=== PATIENT | male | born 1985 | race African-American/Black ===

== ENCOUNTER 2016-10-04 12:42 | Emergency (ER) | payer SELFPAY ==
--- NOTE | 2016-10-04 14:02 | ER Document Report ---
HPI - HPI Patient complains to provider of: left pink eye Onset: Other - 4-5 days Pain Level: 1 Context: 31-year-old noncontact lens wear male with red left eye for several days and now has drainage that is crusting especially in the morning. He has not worn his glasses since fifth grade. No fever or chills. No facial swelling. Associated Symptoms: None Exacerbated by: Denies Relieved by: Denies Similar symptoms previously: No Recently seen / treated by doctor: No - ROS ROS below otherwise negative: Yes Systems Reviewed and Negative: Yes All other systems reviewed and negative - DERM Skin Color: Normal Past Medical History - General Information source: Patient - Social History Smoking Status: Current Every Day Smoker Frequency of alcohol use: Occasional Drug Abuse: Marijuana Lives with: Family Family History: Reviewed & Not Pertinent - Medical History Medical History: Negative Renal/ Medical History: Denies: Hx Peritoneal Dialysis Past Surgical History: Reports: Hx Appendectomy Vertical Provider Document - CONSTITUTIONAL Agree With Documented VS: Yes Exam Limitations: No Limitations - INFECTION CONTROL TRAVEL OUTSIDE OF THE [place] IN LAST 30 DAYS: No - HEENT HEENT: Conjuctival Injection - Left, Normocephalic, PERRLA Notes: Left preauricular lymph node. No for seen uptake, no foreign body - NECK Neck: Supple. negative: Lymphadenopathy-Left, Lymphadenopathy-Right - RESPIRATORY O2 Sat by Pulse Oximetry: 100 - MUSCULOSKELETAL/EXTREMETIES Musculoskeletal/Extremeties: MAEW, FROM - NEURO Level of Consciousness: Awake, Alert, Appropriate - DERM Integumentary: Warm, Dry, No Rash Course - Re-evaluation Re-evalutation: 10/04/16 14:20 Visual acuity 20/50 in the right eye 20/40 in the left eye. - Vital Signs Vital signs: Temp Pulse Resp BP Pulse Ox 98.4 F 88 16 123/81 100 10/04/16 13:26 10/04/16 13:26 10/04/16 13:26 10/04/16 13:26 10/04/16 13:26 Discharge - Discharge Clinical Impression: Left conjunctivitis Qualifiers: Conjunctivitis type: acute Acute conjunctivitis type: unspecified Qualified Code(s): H10.32 - Unspecified acute conjunctivitis, left eye Condition: Good Disposition: HOME, SELF-CARE Instructions: Conjunctivitis ([facility]), Eyedrop Use ([facility]), Sulfa Medications ([facility]) Additional Instructions: See the eye doctor accountancy professor for glasses Return to the emergency room with your eye gets worse Eyedrops for 3-5 days Please complete the patient satisfaction survey if you get one, and return it.. If you do not receive a survey, then you can go to the [facility] website, [email or web address] and place your comments about your very good care. Thank you very much. It was a pleasure being your medical provider today. Prescriptions: Sulfacetamide Sodium [Bleph-10] 2 drop OS QID #5 ml Forms: Return to Work Referrals: TORRES HUMPHREYS MD [ACTIVE STAFF] - Follow up as needed
[2016-10-04 14:56] VITALS: BP 130/76
== END 2016-10-04 14:56 | disposition home or self-care (01) ==
LOC: ER 12:42
DX: H10.32 Unspecified acute conjunctivitis, left eye (principal); F17.200 Nicotine dependence, unspecified, uncomplicated
CPT/HCPCS: 99283

== ENCOUNTER 2017-02-07 00:46 | Emergency (ER) | payer SELFPAY ==
[2017-02-07] MEDS ORDERED: BUPIVACAINE HCL 0.75% INJ/PF (7.5 MG/1 ML) 10 ML SDV INJ ONE (01:53)
[2017-02-07] MEDS ORDERED: PENICILLIN V POTASSIUM 500 MG TABLET PO ONE (01:53)
[2017-02-07] MEDS ORDERED: HYDROCODONE/ACETAMINOPHEN 5-325 MG 6 TAB/DSPK PO PRN (01:54)
--- NOTE | 2017-02-07 01:54 | ER Document Report ---
HPI - HPI Patient complains to provider of: left sided jaw pain Pain Level: 5 Context: 31-year-old male, chief complaint of left jaw pain, symptoms started 1 week ago , has a known fracture of the molar on the lower side. Pain radiates toward his ear. He denies fever, neck pain, difficulty swallowing. He has not been able to get to a dentist. - DERM Skin Color: Normal Past Medical History - General Information source: Patient - Social History Smoking Status: Never Smoker Frequency of alcohol use: None Lives with: Family Family History: Reviewed & Not Pertinent Patient has suicidal ideation: No Patient has homicidal ideation: No - Medical History Medical History: Negative Renal/ Medical History: Denies: Hx Peritoneal Dialysis Past Surgical History: Reports: Hx Appendectomy - Immunizations Immunizations up to date: Yes Hx Diphtheria, Pertussis, Tetanus Vaccination: Yes Vertical Provider Document - CONSTITUTIONAL General Appearance: Mild Distress - Patient is holding the left side of his face , appears to be in some pain, Thin - INFECTION CONTROL TRAVEL OUTSIDE OF THE [place] IN LAST 30 DAYS: No - HEENT HEENT: Atraumatic, Normocephalic. negative: Normal ENT Exam, Pharyngeal Exudate , Pharyngeal Tenderness, Pharyngeal Erythema Mouth Diagram: 1 - Dental caries with surrounding erythema, no palpable fluctuance or induration, no evidence of abscess. - NECK Neck: Normal Inspection. negative: Lymphadenopathy-Left, Lymphadenopathy-Right - RESPIRATORY Respiratory: Breath Sounds Normal, No Respiratory Distress O2 Sat by Pulse Oximetry: 98 - CARDIOVASCULAR Cardiovascular: Regular Rate, Regular Rhythm - GI/ABDOMEN Gastrointestinal: Abdomen Soft, Abdomen Non-Tender - BACK Back: Normal Inspection - MUSCULOSKELETAL/EXTREMETIES Musculoskeletal/Extremeties: MAEW, FROM, Non-Tender - NEURO Level of Consciousness: Awake, Alert, Appropriate - DERM Integumentary: Warm, Dry, No Rash Course - Re-evaluation Re-evalutation: Examination shows dental caries, suspected dental infection. No noted drainable abscess. Discussed with patient, patient wanting a dental block. This was performed with excellent results. Placed on penicillin, referred to dentist with list given at bedside, discussed follow-up and return precautions. Patient states understanding and agreement. - Vital Signs Vital signs: Temp Pulse Resp BP Pulse Ox 98.1 F 77 13 133/84 H 98 02/07/17 01:16 02/07/17 01:16 02/07/17 01:16 02/07/17 01:16 02/07/17 01:16 Procedures - Additional Procedures Left inferior alveolar dental block Notes: Left inferior alveolar dental block performed using 0.75 percent bupivacaine, 3 mL's were used, aspirated before injecting the anesthesia. Excellent results after about a minute. No complications. Discharge - Discharge Clinical Impression: Pain, dental Condition: Stable Disposition: HOME, SELF-CARE Additional Instructions: Take the antibiotics as prescribed to completion. Follow-up with a dentist for repair/extraction to prevent this from occurring again. Return to the emergency department for any concerning or worsening symptoms including swelling of the face. Prescriptions: Penicillin V Potassium [Penicillin Vk 500 mg Tablet] 500 mg PO BID #20 tablet Forms: Return to Work Referrals: [facility] [Provider Group] - Follow up as needed
[2017-02-07 02:22] VITALS: BP 129/81
== END 2017-02-07 02:20 | disposition home or self-care (01) ==
LOC: ER 00:46
PROC: 3E0T3BZ Introduction of Anesthetic Agent into Peripheral Nerves and Plexi, Percutaneous Approach (ICD-10-PCS; principal; 2017-02-07)
DX: K02.9 Dental caries, unspecified (principal); K08.89 Other specified disorders of teeth and supporting structures
CPT/HCPCS: 99283

== ENCOUNTER 2017-06-30 12:38 | Emergency (ER) | payer SELFPAY ==
[2017-06-30 12:45] VITALS: BP 111/69
[2017-06-30] MEDS ORDERED: PENICILLIN V POTASSIUM 500 MG TABLET PO ONE (13:04)
[2017-06-30] MEDS ORDERED: OXYCODONE-ACETAMINOPHEN 5-325 MG TABLET PO ONE (13:04)
--- NOTE | 2017-06-30 13:05 | ER Document Report ---
HPI - HPI Patient complains to provider of: toothache Onset: Other - 3 days Onset/Duration: Persistent Quality of pain: Achy Pain Level: 5 Context: Patient presents complaining of dental pain for the past 3 days. Patient states that the pain is causing him to have a headache. Patient denies any fever or facial swelling. Patient states that the tooth has been broke for some time. Associated Symptoms: Headache, Other - Dental pain. denies: Fever Exacerbated by: Denies Relieved by: Denies Similar symptoms previously: Yes Recently seen / treated by doctor: No - ROS ROS below otherwise negative: Yes Systems Reviewed and Negative: Yes All other systems reviewed and negative - CONSTITUTIONAL Constitutional: DENIES: Fever - NEURO Neurology: REPORTS: Headache. DENIES: Weakness - GASTROINTESTINAL Gastrointestinal: DENIES: Nausea, Patient vomiting - MUSCULOSKELETAL Musculoskeletal: DENIES: Back Pain, Neck Pain - DERM Skin Color: Normal Skin Problems: None Past Medical History - General Information source: Patient - Social History Smoking Status: Current Every Day Smoker Smoking Education Provided: Yes Occupation: [employer] Family History: Reviewed & Not Pertinent - Medical History Medical History: Negative Renal/ Medical History: Denies: Hx Peritoneal Dialysis Past Surgical History: Reports: Hx Appendectomy - Immunizations Immunizations up to date: Yes Hx Diphtheria, Pertussis, Tetanus Vaccination: Yes Vertical Provider Document - CONSTITUTIONAL Agree With Documented VS: Yes Exam Limitations: No Limitations General Appearance: WD/WN, No Apparent Distress - INFECTION CONTROL TRAVEL OUTSIDE OF THE [place] IN LAST 30 DAYS: No - HEENT HEENT: Atraumatic, Normocephalic. negative: Pharyngeal Exudate, Pharyngeal Tenderness, Pharyngeal Erythema, Tympanic Membrane Red, Tympanic Membrane Bulging Mouth Diagram: 1 - Dental caries, fracture, tenderness, no gingival abscess, no trismus - NECK Neck: Normal Inspection, Supple. negative: Lymphadenopathy-Left, Lymphadenopathy-Right - RESPIRATORY Respiratory: Breath Sounds Normal, No Respiratory Distress O2 Sat by Pulse Oximetry: 99 - CARDIOVASCULAR Cardiovascular: Regular Rate, Regular Rhythm - MUSCULOSKELETAL/EXTREMETIES Musculoskeletal/Extremeties: MAEW - NEURO Level of Consciousness: Awake, Alert, Appropriate Motor/Sensory: No Motor Deficit - DERM Integumentary: Warm, Dry, No Rash Course - Re-evaluation Re-evalutation: 06/30/17 13:04 Smoking cessation handout provided to patient. Controlled substance database reviewed - Vital Signs Vital signs: Temp Pulse Resp BP Pulse Ox 98.4 F 79 16 111/69 99 06/30/17 12:44 06/30/17 12:44 06/30/17 12:44 06/30/17 12:44 06/30/17 12:44 Discharge - Discharge Clinical Impression: Toothache Condition: Stable Disposition: HOME, SELF-CARE Instructions: Penicillin V K ([facility]), Toothache ([facility]), Ultram ([facility]) Additional Instructions: Return immediately for any new or worsening symptoms Followup with your primary care provider, call tomorrow to make a followup appointment Follow-up with a dental care provider, call their office tomorrow for an appointment time Prescriptions: Naproxen [Naprosyn 250 Nmg Tablet] 1 tab PO BID #14 tablet Penicillin V Potassium [Penicillin Vk 500 mg Tablet] 500 mg PO BID #20 tablet Tramadol HCl [Ultram 50 mg Tablet] 50 mg PO ASDIR PRN #14 tablet PRN Reason: Forms: Smoking Cessation Education, Return to Work Referrals: [facility] [Provider Group] - Follow up as needed
== END 2017-06-30 13:15 | disposition home or self-care (01) ==
LOC: ER 12:38
DX: K08.89 Other specified disorders of teeth and supporting structures (principal); R51 Headache; F17.200 Nicotine dependence, unspecified, uncomplicated
CPT/HCPCS: 99282

== ENCOUNTER 2019-11-20 16:37 | Inpatient (IN) | payer SELFPAY ==
--- NOTE | 2019-11-20 18:14 | ER Document Report ---
ED Medical Screen (RME) - General Chief Complaint: Abdominal Pain Stated Complaint: ABDOMINAL PAIN Time Seen by Provider: 11/20/19 18:08 Mode of Arrival: Ambulatory Information source: Patient Notes: 34-year-old male presented to ED for lower abdominal pain bilateral. He states he thought he was constipated so he took some milk of magnesia but did not get any relief from the pain and then started yesterday was nausea and vomiting not able to keep anything down. He is alert oriented respirations regular and unlabored speaking in full sentences. He does have a past medical history of an appendectomy history of sludge in his gallbladder right hand and left wrist fracture and depression. He states he smoked 1 cigarette today he drinks maybe once a month has not had any coca meth in 4 months but is using pot a couple days ago. He is alert oriented respirations regular and unlabored speaking in full sentences. I have greeted and performed a rapid initial assessment of this patient. A comprehensive ED assessment and evaluation of the patient, analysis of test results and completion of medical decision making process will be conducted by an additional ED providers. TRAVEL OUTSIDE OF THE [place] IN LAST 30 DAYS: No - Related Data Allergies/Adverse Reactions: No Known Allergies Allergy (Verified 06/30/17 12:39) Past Medical History Renal/ Medical History: Denies: Hx Peritoneal Dialysis Past Surgical History: Reports: Hx Appendectomy - Immunizations Immunizations up to date: Yes Hx Diphtheria, Pertussis, Tetanus Vaccination: Yes Physical Exam - Vital signs Vitals: Temp Pulse Resp BP Pulse Ox 98.8 F 104 H 16 130/74 H 98 11/20/19 16:41 11/20/19 16:41 11/20/19 16:41 11/20/19 16:41 11/20/19 16:41 Course - Vital Signs Vital signs: Temp Pulse Resp BP Pulse Ox 98.8 F 104 H 16 130/74 H 98 11/20/19 16:41 11/20/19 16:41 11/20/19 16:41 11/20/19 16:41 11/20/19 16:41
[2019-11-20] MEDS ORDERED: ONDANSETRON HCL INJ/PF 4 MG/2 ML SDV IV ONE ×2 (18:15→23:08)
[2019-11-20 18:42] LABS: TOTAL CELLS COUNTED % (AUTO) 100 %
[2019-11-20 18:46] LABS: APPEARANCE,URINE SLIGHTLY-CLOUDY; BILIRUBIN,URINE NEGATIVE (NEGATIVE); COLOR,URINE YELLOW; GLUCOSE, URINE NEGATIVE (NEGATIVE); KETONES,URINE 80 mg/dL (NEGATIVE); LEUKOCYTE ESTERASE,URINE SMALL (NEGATIVE); NITRITE,URINE NEGATIVE (NEGATIVE); PROTEIN,URINE 100 mg/dL (NEGATIVE); URINE SPECIFIC GRAVITY 1.031; UROBILINOGEN,URINE NEGATIVE mg/dL (<2.0)
[2019-11-20 18:48] LABS: ADD MANUAL MICROSCOPIC YES
[2019-11-20 18:57] LABS: AMORPHOUS SEDIMENT,UR 3+
[2019-11-20 19:01] LABS: ABSOLUTE EOSINOPHILS # (AUTO) 0.1 10^3/uL (0.0-0.6); ABSOLUTE LYMPHOCYTES (AUTO) 1.1 10^3/uL (0.5-4.7); ABSOLUTE NEUT (AUTO) 12.2 10^3/uL (1.7-8.2); BASOPHILS % (AUTO) 0.3 % (0-2); EOSINOPHILS % (AUTO) 0.5 % (0-6); HEMOGLOBIN 16.9 g/dL (13.5-17.0); LYMPHOCYTES % (AUTO) 7.6 % (13-45); MEAN CORPUSCULAR HEMOGLOBIN 31.1 pg (27.0-33.4); MEAN CORPUSCULAR HGB CONC 34.6 g/dL (32.0-36.0); MEAN CORPUSCULAR VOLUME 90 fl (80-97); PLATELET COUNT 342 10^3/uL (150-450); RED BLOOD COUNT 5.45 10^6/uL (4.35-5.55); SEGMENTED NEUTROPHILS % (AUTO) 84.6 % (42-78); WHITE BLOOD COUNT 14.5 10^3/uL (4.0-10.5)
[2019-11-20 19:03] LABS: ALKALINE PHOSPHATASE 68 U/L (38-126); ANION GAP 11 (5-19); ASPARTATE AMINO TRANSFERASE 25 U/L (17-59); BILIRUBIN,TOTAL 0.8 mg/dL (0.2-1.3); BLOOD UREA NITROGEN 15 mg/dL (7-20); CALCIUM 10.2 mg/dL (8.4-10.2); CARBON DIOXIDE 27 mmol/L (22-30); CHLORIDE 98 mmol/L (98-107); GLUCOSE 107 mg/dL (75-110); TOTAL PROTEIN 8.4 g/dL (6.3-8.2)
--- NOTE | 2019-11-20 19:28 | RADIOLOGY REPORT (SQ) ---
EXAM DESCRIPTION: ACUTE ABDOMEN SERIES IMAGES COMPLETED DATE/TIME: 11/20/2019 6:00 pm REASON FOR STUDY: abdominal pain. COMPARISON: None. NUMBER OF VIEWS: Three views. TECHNIQUE: PA chest, supine abdomen and upright/decubitus abdomen radiographic images acquired. LIMITATIONS: None. FINDINGS: CHEST: Lungs clear of infiltrates. FREE AIR: None. No abnormal gas collections. BOWEL GAS PATTERN: Few scattered small bowel loops with air fluid levels. No distended large or small bowel loops. CALCIFICATIONS: No suspicious calcifications. HARDWARE: None in the abdomen. SOFT TISSUES: No gross mass or suggestion of organomegaly. BONES: No acute fracture. No worrisome bone lesions. OTHER: No other significant finding. IMPRESSION: NONSPECIFIC BOWEL GAS PATTERN WITHOUT EVIDENCE FOR OBSTRUCTION. TECHNICAL DOCUMENTATION: JOB ID: [id number] 2010 [employer]- All Rights Reserved Reading location - IP/workstation name: [email or web address]
[2019-11-20 19:44] LABS: URINE AMPHETAMINES SCREEN NEGATIVE; URINE BARBITURATES SCREEN NEGATIVE; URINE BENZODIAZEPINES SCREEN NEGATIVE; URINE COCAINE SCREEN NEGATIVE; URINE METHADONE SCREEN NEGATIVE; URINE PHENCYCLIDINE SCREEN NEGATIVE
[2019-11-20] MEDS ORDERED: NORMAL SALINE 1000 ML 1,000 ML IV ONE ×2 (19:45→23:08)
[2019-11-20 19:46] LABS: URINE MARIJUANA (THC) SCREEN UNCONFIRMED POSITIVE
[2019-11-20] MEDS ORDERED: HYDROMORPHONE HCL INJ/PF 2 MG/ML AMPULE IM ONE (21:31)
[2019-11-20] MEDS ORDERED: HYDROMORPHONE HCL INJ/PF 2 MG/ML AMPULE IV ONE (23:07)
--- NOTE | 2019-11-20 23:11 | ER Document Report ---
ED GI/ - General Chief Complaint: Abdominal Pain Stated Complaint: ABDOMINAL PAIN Time Seen by Provider: 11/20/19 18:08 Mode of Arrival: Ambulatory Notes: Patient is a 34-year-old male who presents to the emergency department who presents the emergency department with a chief complaint of abdominal pain. Patient states that his pain started 2 days ago. States it is subumbilical. Patient states that every time he tries to eat or drink anything, he ends up vomiting. Patient has a history of an appendectomy in the past. Patient states that he is sexually active. States he wears condoms. Denies any penile d ischarge. Patient states that he has a history of gallstones, but has not had them removed. Denies any right upper quadrant abdominal pain. TRAVEL OUTSIDE OF THE [place] IN LAST 30 DAYS: No - Related Data Allergies/Adverse Reactions: No Known Allergies Allergy (Verified 06/30/17 12:39) Past Medical History - General Information source: Patient - Social History Smoking Status: Current Every Day Smoker Chew tobacco use (# tins/day): No Frequency of alcohol use: Rare Drug Abuse: Marijuana Family History: Reviewed & Not Pertinent Patient has homicidal ideation: No Renal/ Medical History: Denies: Hx Peritoneal Dialysis Past Surgical History: Reports: Hx Appendectomy - Immunizations Immunizations up to date: Yes Hx Diphtheria, Pertussis, Tetanus Vaccination: Yes Review of Systems - Review of Systems Notes: REVIEW OF SYSTEMS: CONSTITUTIONAL : Denies recent illness. Denies recent unintentional weight loss. Denies fever, chills, or sweats. EENT: Denies eye, ear, throat, or mouth pain, discharge, or symptoms. Denies nasal or sinus congestion. CARDIOVASCULAR: Denies chest pain. RESPIRATORY: Denies shortness of breath, cough, congestion, difficulty breathing, or wheezing. GASTROINTESTINAL: See HPI. GENITOURINARY: Denies difficulty urinating, burning, blood in urine, urgency or frequency. MUSCULOSKELETAL: Denies neck and back pain. Denies joint pain or swelling. SKIN: Denies rash, itchiness, or lesions HEMATOLOGIC : Denies easy bruising or bleeding. LYMPHATIC: Denies swollen, painful, enlarged glands. NEUROLOGICAL: Denies no numbness or tingling denies weakness. Denies headache. Denies altered mental status. Denies alteration in speech. PSYCHIATRIC: Denies stress, anxiety, alteration in sleep patterns, or depression. All other systems reviewed and negative. Physical Exam - Vital signs Vitals: Temp Pulse Resp BP Pulse Ox 98.8 F 104 H 16 130/74 H 98 11/20/19 16:41 11/20/19 16:41 11/20/19 16:41 11/20/19 16:41 11/20/19 16:41 - Notes Notes: PHYSICAL EXAMINATION: GENERAL: Appears well, healthy, well-nourished, no acute distress. HEAD: Normocephalic, atraumatic. EYES: PERRL, conjunctiva normal, all extraocular movements intact, sclera nonicteric ENT: Moist mucous membranes. NECK: Supple, no noticeable swelling, redness, rash. Normal range of motion. LUNGS: Equal breath sounds bilaterally and clear to auscultation. No wheezes rales or rhonchi. CARDIOVASCULAR: S1-S2, regular rate, regular rhythm. Radial pulses 2+, normal. ABDOMEN: Normoactive bowel sounds. Soft, very tender lower abdomen bilaterally, rebound tenderness noted, and no masses palpated. EXTREMITIES: Normal strength and range of motion, no pitting or edema. No cyanosis. NEUROLOGICAL: Moves all extremities upon command. Strength 5/5 in all extremit ies. PSYCH: Normal mood, normal affect. SKIN: Warm, dry. No rash, lesions, ulcerations noted. Normal skin turgor. Course - Re-evaluation Re-evalutation: 11/21/19 02:08 Labs show a leukocytosis of 14,500 with a left shift. Chemistries are unremarkable. Patient has a small amount of leukocytes in his urine and a mild amount of blood. He has ketones in his urine. He received IV fluids. Toxicology ordered in triage shows that patient has marijuana use. Gonorrhea and Chlamydia are still pending. CT shows that the patient has a bowel obstruction. Spoke with Dr. Law, the surgeon on-call. Patient will be admitted to the surgical floor. - Vital Signs Vital signs: Temp Pulse Resp BP Pulse Ox 98.6 F 65 17 110/71 100 11/21/19 14:00 11/21/19 14:00 11/21/19 14:00 11/21/19 14:00 11/21/19 14:00 - Laboratory Result Diagrams: 11/20/19 18:35 11/20/19 18:35 Laboratory results interpreted by me: 11/20/19 11/20/19 11/20/19 18:35 18:35 18:35 WBC 14.5 H Lymph % (Auto) 7.6 L Absolute Neuts (auto) 12.2 H Seg Neutrophils % 84.6 H Sodium 135.7 L Total Protein 8.4 H Urine Protein 100 H Urine Ketones 80 H Urine Blood MODERATE H Ur Leukocyte Esterase SMALL H Discharge - Discharge Clinical Impression: Bowel obstruction Qualifiers: Intestinal obstruction type: unspecified Intestinal obstruction extent: unspeci fied extent Qualified Code(s): K56.609 - Unspecified intestinal obstruction, unspecified as to partial versus complete obstruction Condition: Stable Disposition: ADMITTED INPATIENT Admitting Provider: Surgicalist Unit Admitted: Surgical Floor
--- NOTE | 2019-11-21 01:25 | RADIOLOGY REPORT (SQ) ---
EXAM DESCRIPTION: CT ABDOMEN PELVIS WITH IV CONTRAST COMPLETED DATE/TME: 11/20/2019 23:09 CLINICAL HISTORY: abdominal pain COMPARISON: None Available. TECHNIQUE: CT of the abdomen and pelvis performed following IV administration of 87 mL of Omnipaque 350. FINDINGS: Lung Bases: The visualized lung bases are clear. Bones: No destructive bone lesions identified. Abdomen: Liver: The liver has normal size and density. No intrahepatic biliary dilatation. Gallbladder: No calcified gallstones. Spleen, Pancreas, and Adrenal Glands: The spleen, pancreas, and adrenal glands are unremarkable. Kidneys: No hydronephrosis or obstructing calculus. Vasculature: The aorta and IVC have normal caliber and position. The portal vein is patent. The proximal visceral and renal arteries are patent. Stomach: The stomach and duodenum have normal course. Other: No free intraperitoneal air. No free fluid or lymphadenopathy. Pelvis: Bladder: Urinary bladder is unremarkable. Bowel: Dilated loops of small bowel with distally decompressed loops of small bowel. Transition point is seen in the pelvis on images #61 through 63, series 3. Appendix: The appendix is not identified. Pelvis: Prostate is not enlarged. IMPRESSION: 1. Findings compatible with mechanical small bowel obstruction with transition point in the pelvis. This exam was performed according to our departmental dose-optimization program, which includes automated exposure control, adjustment of the mA and/or kV according to patient size and/or use of iterative reconstruction technique.
[2019-11-21] MEDS ORDERED: PHARMACY COMMUNICATION ORDER MC NR (02:15)
[2019-11-21] MEDS: MORPHINE SULFATE 10 MG/ML INJ IV PRN ×5 (03:42→22:29)
[2019-11-21] MEDS: DEXTROSE 5%-LACTATED RINGERS 1,000 ML IV PRN (03:43)
[2019-11-21 04:36] LABS: CHLAM PCR DETECTED (NOT DETECT)
--- NOTE | 2019-11-21 09:36 | RADIOLOGY REPORT (SQ) ---
EXAM DESCRIPTION: KUB/ABDOMEN (SINGLE VIEW) IMAGES COMPLETED DATE/TIME: 11/21/2019 8:28 am REASON FOR STUDY: Check Placement of NG Tube COMPARISON: CT of the abdomen pelvis with contrast from 11/21/2019. NUMBER OF VIEWS: One view. TECHNIQUE: An AP supine view of the abdomen was obtained. LIMITATIONS: None. FINDINGS: BOWEL GAS PATTERN: Air-filled dilated loops of bowel in the mid abdomen. CALCIFICATIONS: None. SOFT TISSUES: No abnormality. HARDWARE: The tip and side hole of the enteric tube project within the gastric lumen. BONES: No acute fracture. OTHER: The cardiomediastinal silhouette and pulmonary vasculature within normal limits. There is no consolidation, pleural effusion or pneumothorax. IMPRESSION: The tip and side hole of the enteric tube project within the gastric lumen. TECHNICAL DOCUMENTATION: JOB ID: [id number] 2010 [email or web address]- All Rights Reserved Reading location - IP/workstation name: [email or web address]
[2019-11-21] MEDS: FAMOTIDINE INJ/PF 20 MG/2 ML SDV IV SCH ×2 (09:57→22:27)
[2019-11-21] MEDS: ACETAMINOPHEN 1,000 MG/100 ML RTUPB IV SCH ×2 (09:57→17:32)
[2019-11-21] MEDS: KETOROLAC TROMETHAMINE INJ/PF 30 MG/1 ML SDV IV SCH ×2 (09:57→17:32)
[2019-11-21] MEDS ORDERED: AZITHROMYCIN INJ 500 MG VIAL IV ONE (12:01)
[2019-11-21] MEDS: DOXYCYCLINE HYCLATE 100 MG in DEXTROSE 5%-WATER 250 ML IV SCH ×2 (12:41→22:28)
[2019-11-21] MEDS ORDERED: AZITHROMYCIN 1,000 MG in DEXTROSE 5%-WATER 500 ML IV ONE (13:30)
--- NOTE | 2019-11-21 13:36 | PDOC H&P ---
History of Present Illness Admission Date/PCP: 11/21/19 02:13 Patient complains of: Nausea, vomiting, abdominal pain History of Present Illness: ELA LOVING is a 34 year old male with a 2-day history of nausea, vomiting, and abdominal pain. Patient's last bowel movement was 3 days ago. Since then, he denies passing any flatus. He began experiencing abdominal distention, followed by nausea, and then vomiting. On admission, the patient reports that he could not hold anything down, even water. The patient was evaluated in the emergency department. A CT scan was performed noting dilated loops of small bowel, consistent with a small bowel obstruction. The patient does have a history of perforated appendicitis in the past. He is never experienced symptoms like this before. The patient denies headache, shortness of breath, chest pain, fevers, chills. He does experience a burning abdominal pain that is moderate in intensity. It is unrelenting and constant. Nothing makes it better. Palpation and movement make it worse.. Past Medical History Medical History: None Psychiatric Medical History: Reports: Depression Past Surgical History Past Surgical History: Reports: Appendectomy Social History Smoking Status: Current Every Day Smoker Electronic Cigarette use?: No Frequency of Alcohol Use: Occasional Hx Recreational Drug Use: Yes Drugs: Marijuana Family History Family History: Reviewed & Not Pertinent Parental Family History Reviewed: Yes Children Family History Reviewed: Yes Sibling(s) Family History Reviewed.: Yes Medication/Allergy Home Medications: No Home Medications 11/21/19 Allergies/Adverse Reactions: No Known Allergies Allergy (Verified 06/30/17 12:39) Review of Systems Constitutional: ABSENT: anorexia, chills, fatigue, fever(s), headache(s), weakness Eyes: ABSENT: visual disturbances Ears: ABSENT: hearing changes Nose, Mouth, and Throat: ABSENT: sore throat Cardiovascular: ABSENT: chest pain, palpitations Respiratory: ABSENT: cough Gastrointestinal: PRESENT: abdominal pain, bloating, nausea, vomiting Genitourinary: ABSENT: dysuria Musculoskeletal: ABSENT: back pain Integumentary: ABSENT: pruritus, rash Neurological: ABSENT: confusion, convulsions, dizziness Psychiatric: ABSENT: anxiety, depression Endocrine: ABSENT: cold intolerance, heat intolerance Hematologic/Lymphatic: ABSENT: easy bleeding, easy bruising Physical Exam Vital Signs: Temp Pulse Resp BP Pulse Ox 98.0 F 62 20 130/78 H 99 11/21/19 03:34 11/21/19 03:34 11/21/19 03:34 11/21/19 03:34 11/20/19 19:42 Intake & Output 11/20/19 11/21/19 11/22/19 06:59 06:59 06:59 Intake Total 1000 Balance 1000 Weight 67 kg General appearance: PRESENT: no acute distress, cooperative Head exam: PRESENT: atraumatic, normocephalic Eye exam: PRESENT: EOMI, PERRLA. ABSENT: scleral icterus Mouth exam: PRESENT: moist, neck supple Neck exam: ABSENT: meningismus, tenderness, thyromegaly, tracheal deviation Respiratory exam: PRESENT: clear to auscultation bryan, unlabored. ABSENT: chest wall tenderness, tachypnea, wheezes Cardiovascular exam: ABSENT: tachycardia Vascular exam: PRESENT: normal capillary refill GI/Abdominal exam: PRESENT: soft, tenderness - mild tenderness all 4 quadrants. ABSENT: distended, firm, guarding Rectal exam: PRESENT: deferred Extremities exam: ABSENT: clubbing Musculoskeletal exam: ABSENT: deformity Neurological exam: PRESENT: alert, awake, oriented to person, oriented to place, oriented to time, oriented to situation, CN II-XII grossly intact. ABSENT: motor sensory deficit Psychiatric exam: ABSENT: agitated, anxious, depressed Focused psych exam: ABSENT: delusional Skin exam: ABSENT: cyanosis, erythema, jaundice Results Laboratory Results: 11/20/19 18:35 11/20/19 18:35 11/20/19 11/20/19 11/20/19 18:35 18:35 18:35 WBC 14.5 H RBC 5.45 Hgb 16.9 Hct 49.0 MCV 90 MCH 31.1 MCHC 34.6 RDW 14.0 Plt Count 342 Seg Neutrophils % 84.6 H Sodium 135.7 L Potassium 4.0 Chloride 98 Carbon Dioxide 27 Anion Gap 11 BUN 15 Creatinine 1.11 Est GFR ( Amer) > 60 Glucose 107 Calcium 10.2 Total Bilirubin 0.8 AST 25 Alkaline Phosphatase 68 Total Protein 8.4 H Albumin 5.0 Lipase 197.3 Urine Color YELLOW Urine Appearance SLIGHTLY-CLOUDY Urine pH 6.0 Ur Specific [place] 1.031 Urine Protein 100 H Urine Glucose (UA) NEGATIVE Urine Ketones 80 H Urine Blood MODERATE H Urine Nitrite NEGATIVE Ur Leukocyte Esterase SMALL H Ur Squamous Epith Cells MANY Impressions: Acute Abdomen Series 11/20/19 18:15 IMPRESSION: NONSPECIFIC BOWEL GAS PATTERN WITHOUT EVIDENCE FOR OBSTRUCTION. Abdomen/Pelvis CT 11/20/19 23:09 IMPRESSION: 1. Findings compatible with mechanical small bowel obstruction with transition point in the pelvis. This exam was performed according to our departmental dose-optimization program, which includes automated exposure control, adjustment of the mA and/or kV according to patient size and/or use of iterative reconstruction technique. Assessment & Plan - Diagnosis (1) Small bowel obstruction due to adhesions Is this a current diagnosis for this admission?: Yes - Plan Summary Plan Summary: This is a 34-year-old male with a history of previous abdominal surgery, presenting with a CT scan, history, and physical consistent with small bowel obstruction. I have personally reviewed CT scan. He has dilated loops of small bowel, with relative decompression of his colon. The patient has an NG tube in- place. His abdomen is soft, and nondistended. I will provide the patient with analgesia. Continue with the NG tube to suction. Repeat x-rays tomorrow. Hopefully his small bowel obstruction will resolve with conservative measures. If not, surgery may be required. This has been discussed with the patient. He is in agreement with the treatment plan.
[2019-11-22] MEDS: KETOROLAC TROMETHAMINE INJ/PF 30 MG/1 ML SDV IV SCH ×3 (01:45→18:03)
[2019-11-22] MEDS: ACETAMINOPHEN 1,000 MG/100 ML RTUPB IV SCH ×3 (01:47→18:03)
[2019-11-22] MEDS: MORPHINE SULFATE 10 MG/ML INJ IV PRN ×3 (04:35→15:30)
[2019-11-22] MEDS: PHENOL/SODIUM PHENOLATE 100 SPRAY/177 ML BOTTLE PO PRN (04:41)
[2019-11-22] MEDS: DEXTROSE 5%-LACTATED RINGERS 1,000 ML IV PRN ×3 (04:46→22:22)
[2019-11-22 05:30] LABS: ABSOLUTE BASOPHILS # (AUTO) 0.1 10^3/uL (0.0-0.2); ABSOLUTE EOSINOPHILS # (AUTO) 0.2 10^3/uL (0.0-0.6); ABSOLUTE LYMPHOCYTES (AUTO) 2.3 10^3/uL (0.5-4.7); ABSOLUTE MONOCYTES (AUTO) 0.9 10^3/uL (0.1-1.4); ABSOLUTE NEUT (AUTO) 4.9 10^3/uL (1.7-8.2); BASOPHILS % (AUTO) 0.8 % (0-2); EOSINOPHILS % (AUTO) 2.8 % (0-6); HEMATOCRIT 42.9 % (37.9-51.0); LYMPHOCYTES % (AUTO) 27.4 % (13-45); MEAN CORPUSCULAR HEMOGLOBIN 31.3 pg (27.0-33.4); MEAN CORPUSCULAR HGB CONC 34.3 g/dL (32.0-36.0); MEAN CORPUSCULAR VOLUME 91 fl (80-97); MONOCYTES % (AUTO) 10.7 % (3-13); PLATELET COUNT 253 10^3/uL (150-450); RED CELL DISTRIBUTION WIDTH 13.9 % (11.5-14.0); SEGMENTED NEUTROPHILS % (AUTO) 58.3 % (42-78); TOTAL CELLS COUNTED % (AUTO) 100 %; WHITE BLOOD COUNT 8.4 10^3/uL (4.0-10.5)
[2019-11-22 05:31] LABS: HEMOGLOBIN 14.7 g/dL (13.5-17.0)
[2019-11-22 05:38] LABS: ANION GAP 6 (5-19); BLOOD UREA NITROGEN 12 mg/dL (7-20); CALCIUM 9.3 mg/dL (8.4-10.2); CARBON DIOXIDE 29 mmol/L (22-30); CHLORIDE 100 mmol/L (98-107); GLUCOSE 87 mg/dL (75-110); POTASSIUM 3.9 mmol/L (3.6-5.0)
--- NOTE | 2019-11-22 10:02 | PDOC PROGRESS REPORT ---
Subjective Progress Note for:: 11/22/19 Reason For Visit: SBO Patient states he is feeling better; 350 cc of NG tube. No flatus no stool. Physical Exam Vital Signs: Temp Pulse Resp BP Pulse Ox 98.0 F 56 L 18 124/78 100 11/22/19 00:25 11/22/19 00:25 11/22/19 00:25 11/22/19 00:25 11/22/19 00:25 Intake & Output 11/21/19 11/22/19 11/23/19 06:59 06:59 06:59 Intake Total 1000 2300 Output Total 1650 Balance 1000 650 Weight 67 kg 68.5 kg General appearance: PRESENT: no acute distress GI/Abdominal exam: PRESENT: other - Abdomen examined. Scaphoid. Midline scar well-healed above below the umbilicus. Abdomen is tender but without rigidity. Results Laboratory Results: 11/22/19 04:30 11/22/19 04:30 11/22/19 11/22/19 04:30 04:30 WBC 8.4 RBC 4.70 Hgb 14.7 D Hct 42.9 MCV 91 MCH 31.3 MCHC 34.3 RDW 13.9 Plt Count 253 Seg Neutrophils % 58.3 Sodium 135.2 L Potassium 3.9 Chloride 100 Carbon Dioxide 29 Anion Gap 6 BUN 12 Creatinine 1.25 Est GFR ( Amer) > 60 Glucose 87 Calcium 9.3 Impressions: Acute Abdomen Series 11/20/19 18:15 IMPRESSION: NONSPECIFIC BOWEL GAS PATTERN WITHOUT EVIDENCE FOR OBSTRUCTION. Abdomen/Pelvis CT 11/20/19 23:09 IMPRESSION: 1. Findings compatible with mechanical small bowel obstruction with transition point in the pelvis. This exam was performed according to our departmental dose-optimization program, which includes automated exposure control, adjustment of the mA and/or kV according to patient size and/or use of iterative reconstruction technique. Assessment & Plan - Diagnosis (1) Small bowel obstruction due to adhesions Is this a current diagnosis for this admission?: Yes Plan: Impression: Patient with a remote history of exploratory surgery, now with small bowel obstruction; abdominal film today shows dilated loops of small bowel with apparent contrast although patient did not receive contrast during admission CT scan. Some stool in the right colon. The stomach is decompressed. No peritoneal signs on physical examination. Bowel obstruction not resolved Recommendations: 1. We will obtain an upper GI small bowel follow-through via nasogastric tube to rule out medical blockage which the current abdominal film suggests. 2. I discussed the above with the patient, and nursing staff. 3. Encourage the patient to bring from taking narcotic pain medication as this will slow the bowel recovery. - Time Time Spent: 30 to 50 Minutes Critical Time spent with patient: 15-24 minutes
[2019-11-22] MEDS: FAMOTIDINE INJ/PF 20 MG/2 ML SDV IV SCH ×2 (10:20→22:23)
[2019-11-22] MEDS: DOXYCYCLINE HYCLATE 100 MG in DEXTROSE 5%-WATER 250 ML IV SCH ×2 (11:03→22:22)
--- NOTE | 2019-11-22 12:23 | RADIOLOGY REPORT (SQ) ---
EXAM DESCRIPTION: KUB/ABDOMEN (SINGLE VIEW) IMAGES COMPLETED DATE/TIME: 11/22/2019 9:28 am REASON FOR STUDY: sbo COMPARISON: None. NUMBER OF VIEWS: One view. TECHNIQUE: Supine radiographic image of the abdomen acquired. LIMITATIONS: None. FINDINGS: BOWEL GAS PATTERN: There are dilated loops of bowel centrally in the abdomen. They are th ere is a small amount of contrast within this area. CALCIFICATIONS: No suspicious calcifications. SOFT TISSUES: No gross mass or suggestion of organomegaly. HARDWARE: None in the abdomen. BONES: No acute fracture. No worrisome bone lesions. OTHER: No other significant finding. IMPRESSION: Small bowel obstruction. TECHNICAL DOCUMENTATION: JOB ID: [id number] 2010 [employer]- All Rights Reserved Reading location - IP/workstation name: [email or web address]
[2019-11-22] MEDS: ONDANSETRON HCL INJ/PF 4 MG/2 ML SDV IV PRN (15:30)
[2019-11-23] MEDS: MORPHINE SULFATE 10 MG/ML INJ IV PRN ×4 (01:05→22:11)
[2019-11-23] MEDS: PHENOL/SODIUM PHENOLATE 100 SPRAY/177 ML BOTTLE PO PRN (01:07)
[2019-11-23] MEDS: KETOROLAC TROMETHAMINE INJ/PF 30 MG/1 ML SDV IV SCH ×3 (02:49→17:46)
[2019-11-23] MEDS: ACETAMINOPHEN 1,000 MG/100 ML RTUPB IV SCH ×4 (02:50→17:46)
[2019-11-23] MEDS: DEXTROSE 5%-LACTATED RINGERS 1,000 ML IV PRN ×2 (07:21→16:29)
[2019-11-23] MEDS: ONDANSETRON HCL INJ/PF 4 MG/2 ML SDV IV PRN ×2 (07:25→16:25)
--- NOTE | 2019-11-23 08:30 | PDOC PROGRESS REPORT ---
Subjective Progress Note for:: 11/23/19 Subjective:: still c/o lower abd pain, no flatus Reason For Visit: SBO Physical Exam Vital Signs: Temp Pulse Resp BP Pulse Ox 98.4 F 105 H 16 122/74 99 11/23/19 03:41 11/23/19 03:41 11/23/19 03:41 11/23/19 03:41 11/23/19 03:41 Intake & Output 11/22/19 11/23/19 11/24/19 06:59 06:59 06:59 Intake Total 2300 3748 Output Total 1650 300 Balance 650 3448 Weight 68.5 kg 68.9 kg General appearance: PRESENT: mild distress Head exam: PRESENT: normocephalic Eye exam: PRESENT: EOMI Ear exam: PRESENT: normal external ear exam Mouth exam: PRESENT: moist Teeth exam: PRESENT: poor dentation Neck exam: PRESENT: full ROM Respiratory exam: PRESENT: clear to auscultation bryan Cardiovascular exam: PRESENT: RRR Pulses: PRESENT: normal radial pulses, normal femoral pulses Vascular exam: PRESENT: normal capillary refill Breast: PRESENT: Normal GI/Abdominal exam: PRESENT: other - distended, few bs, sl tender to palpation lower abd. Rectal exam: PRESENT: deferred Extremities exam: PRESENT: full ROM Musculoskeletal exam: PRESENT: full ROM Neurological exam: PRESENT: alert, awake, oriented to person, oriented to place Psychiatric exam: PRESENT: appropriate affect Skin exam: PRESENT: dry Results Laboratory Results: 11/22/19 04:30 11/22/19 04:30 Impressions: Acute Abdomen Series 11/20/19 18:15 IMPRESSION: NONSPECIFIC BOWEL GAS PATTERN WITHOUT EVIDENCE FOR OBSTRUCTION. Abdomen/Pelvis CT 11/20/19 23:09 IMPRESSION: 1. Findings compatible with mechanical small bowel obstruction with transition point in the pelvis. This exam was performed according to our departmental dose-optimization program, which includes automated exposure control, adjustment of the mA and/or kV according to patient size and/or use of iterative reconstruction technique. KUB X-Ray 11/22/19 06:00 IMPRESSION: Small bowel obstruction. Assessment & Plan - Plan Summary Plan Summary: persistent sbo x 3days small bowel series shows little if any progression. pt wishes to proceed with surgery discussed risks benifits discussed bleeding, infection, mi, pneumonia. wound infection, hernia. injruy to adjacent organs fistula, leak, sepsis, pt wishes to proceed.
--- NOTE | 2019-11-23 09:53 | RADIOLOGY REPORT (SQ) ---
EXAM DESCRIPTION: SMALL BOWEL SERIES IMAGES COMPLETED DATE/TIME: 11/23/2019 9:22 am REASON FOR STUDY: Rule out mechanical obstruction abdominal pain COMPARISON: CT abdomen 11/21/2019. FLUOROSCOPY TIME: None No fluoro images saved to PACS. LIMITATIONS: None. PROCEDURE: Initial data center solutions architect image of abdomen acquired, followed by administration of oral contrast. Se rial radiographic images acquired. Fluoroscopic images recorded of the terminal ileum and other elida cated areas. All images stored on PACS. FINDINGS: CORK MOLDER KUB: Diffuse small bowel dilatation. No abnormal calcifications. Soft tissue plane s normal. STOMACH: No significant reflux. Normal distention without abnormality. DUODENUM: Normal mucosal pattern with adequate distention. No displacement or obstruction. JEJUNUM: Normal mucosal pattern. Moderate dilatation without segmentation, strictures or masses. ILEUM: Normal mucosal pattern. Marked dilatation without segmentation, strictures or masses. TERMINAL ILEUM AND ILEO-CECAL VALVE: Not assessed, as contrast has not progressed. PROXIMAL COLON: Contrast not seen in the colon on 21 hour delay film. OTHER: No other significant finding. IMPRESSION: NO CONTRAST SEEN WITHIN THE COLON ON THE 21 HOUR DELAY FILM, CONSISTENT WITH OBSTRUCTION . MARKED DISTAL SMALL BOWEL DILATATION. COMMENT: None Quality ID [id number]: Final reports for procedures using fluoroscopy that document radiation exposure elida jorge luis, or exposure time and number of fluorographic images (if radiation exposure indices are not avail able) TECHNICAL DOCUMENTATION: JOB ID: [id number] 2010 [employer]- All Rights Reserved Reading location - IP/workstation name: [email or web address] [id number]
[2019-11-23] MEDS: DOXYCYCLINE HYCLATE 100 MG in DEXTROSE 5%-WATER 250 ML IV SCH ×2 (10:02→22:12)
[2019-11-23] MEDS: FAMOTIDINE INJ/PF 20 MG/2 ML SDV IV SCH ×2 (10:02→22:11)
[2019-11-23] MEDS ORDERED: LIDOCAINE 2% INJ-PF (20 MG/ML) 2 ML AMPUL ONE (10:13)
[2019-11-23] MEDS ORDERED: SUCCINYLCHOLINE CHLORIDE INJ 200 MG/10 ML VIAL ONE (10:13)
[2019-11-23] MEDS ORDERED: ROCURONIUM BROMIDE INJ 50 MG/5 ML VIAL IV ONE (10:13)
[2019-11-23] MEDS ORDERED: SUGAMMADEX SODIUM 200 MG/2 ML SDV IV ONE (13:10)
[2019-11-23] MEDS ORDERED: DEXAMETHASONE SOD PHOSPHATE INJ 4 MG/1 ML VIAL ONE (13:10)
[2019-11-23] MEDS ORDERED: FENTANYL CITRATE INJ/PF 100 MCG/2 ML AMPUL ONE (13:10)
[2019-11-23] MEDS ORDERED: ONDANSETRON HCL INJ/PF 4 MG/2 ML SDV ONE (13:10)
[2019-11-23] MEDS ORDERED: MIDAZOLAM 2 MG/2 ML INJ ONE (13:10)
[2019-11-23] MEDS ORDERED: PROPOFOL INJ 200 MG/20 ML VIAL IV ONE (13:11)
[2019-11-23] MEDS ORDERED: BUPIVACAINE INJ/PF LIPOSOME/PF 266 MG/20 ML SDV ONE (13:31)
[2019-11-23] MEDS ORDERED: FENTANYL CITRATE INJ/PF 100 MCG/2 ML AMPUL IV PRN ×3 (13:51)
[2019-11-23] MEDS ORDERED: DIPHENHYDRAMINE HCL 50 MG/ML VIAL IV PRN (13:51)
[2019-11-23] MEDS ORDERED: PROMETHAZINE HCL INJ 25 MG/1 ML VIAL IV PRN ×2 (13:51)
[2019-11-23] MEDS ORDERED: MORPHINE SULFATE 10 MG/ML INJ IV PRN (13:51)
[2019-11-23] MEDS ORDERED: MEPERIDINE HCL/PF INJ 25 MG/1 ML DISP.SYRIN IV PRN (13:51)
[2019-11-23] MEDS ORDERED: ONDANSETRON HCL INJ/PF 4 MG/2 ML SDV IV PRN (13:51)
--- NOTE | 2019-11-23 14:39 | Operative Report ---
Nonrecallable Operative Report DATE OF SURGERY: 11/23/19 PREOPERATIVE DIAGNOSIS: small bowel obstruction POSTOPERATIVE DIAGNOSIS: small bowel obstruction OPERATION: exploratory laparotomy iwth lysis of adhesions SURGEON: PHILIPP DASH 1ST PERSONNEL ARBITRATOR: VALERIE MACE ANESTHESIA: GA TISSUE REMOVED OR ALTERED: none COMPLICATIONS: none ESTIMATED BLOOD LOSS: 50cc INTRAOPERATIVE FINDINGS: mid small bowel adhesions PROCEDURE: Patient was brought to the operating awake alert stable condition placed on the operative table supine position induced under general anesthesia intubated abdomen was prepped draped in usual sterile fashion for the procedure. After appropriate timeout site verification the procedure commenced. Midline incision was used from just above the pubic symphysis to just above the umbilicus dissection was carried down through subtenons tissue with Bovie cautery the midline fascia was entered. He did not have a significant amount of adhesions in the midline fascia from the previous incision. The small bowel was markedly dilated and eviscerated and we reached a point in the mid small bowel there were tight adhesions along the superior superior mesenteric vessels that required sharp dissection to free up the dense tight adhesions in the mid small bowel once this was done we were able to then open the small bowel obstruction in the contents were then decompressed into the distal small bowel. There were also some adhesions in the right lower quadrant required sharp dissection to mobilize the decompressed small bowel once this was done we noted the enteric contents easily passed through into the cecum. We milked the majority of the small bowel contents that were mostly liquid from the obstructed portion of the small bowel distally into the cecum. Once this was done the small bowel was then returned to the abdominal cavity the covered with the omentum in the midline fascia was closed with a running #1 double looped PDS suture skin was closed with standard skin clips. Estimated blood loss for the procedure was less than 50 cc sponge needle counts were correct x2 the patient was awakened in the operating room extubated transferred recovery in stable condition. GERSON Lemon was present during the entire procedure help with wound retraction wound closure
--- NOTE | 2019-11-23 20:15 | CDI QUERY ---
CDI Query CDI Review: Dear Provider: To better reflect your patients severity of illness, morbidity, and resource utilization Please specify and document in the Progress Notes and Discharge Summary if you are monitoring / treating / evaluating any of the following conditions: Query Clinical indicators Please clarify and document if the small bowel obstruction was: Complete Incomplete Partial Other POSTOPERATIVE DIAGNOSIS: small bowel obstruction OPERATION: exploratory laparotomy with lysis of adhesions The terms probable, suspected, likely, possible or still to be ruled out may be used if you are unable to determine the exact nature of a condition. Thank you for your consideration, Clinical Documentation Physician Advisors CYNDI Robison RN, BSN RN
[2019-11-24] MEDS: ACETAMINOPHEN 1,000 MG/100 ML RTUPB IV SCH (02:43)
[2019-11-24] MEDS: KETOROLAC TROMETHAMINE INJ/PF 30 MG/1 ML SDV IV SCH ×3 (02:43→17:57)
[2019-11-24] MEDS: DOXYCYCLINE HYCLATE 100 MG in DEXTROSE 5%-WATER 250 ML IV SCH ×2 (12:00→22:19)
[2019-11-24] MEDS: FAMOTIDINE INJ/PF 20 MG/2 ML SDV IV SCH ×2 (12:01→22:19)
--- NOTE | 2019-11-24 13:59 | PDOC PROGRESS REPORT ---
Subjective Progress Note for:: 11/24/19 Reason For Visit: SBO Physical Exam Vital Signs: Temp Pulse Resp BP Pulse Ox 98.3 F 70 16 124/87 H 100 11/24/19 11:27 11/24/19 11:27 11/24/19 11:27 11/24/19 11:27 11/24/19 11:27 Intake & Output 11/23/19 11/24/19 11/25/19 06:59 06:59 06:59 Intake Total 3748 2950 1100 Output Total 300 770 Balance 3448 2180 1100 Weight 68.9 kg 68.9 kg Results Laboratory Results: 11/22/19 04:30 11/22/19 04:30 Impressions: Acute Abdomen Series 11/20/19 18:15 IMPRESSION: NONSPECIFIC BOWEL GAS PATTERN WITHOUT EVIDENCE FOR OBSTRUCTION. Abdomen/Pelvis CT 11/20/19 23:09 IMPRESSION: 1. Findings compatible with mechanical small bowel obstruction with transition point in the pelvis. This exam was performed according to our departmental dose-optimization program, which includes automated exposure control, adjustment of the mA and/or kV according to patient size and/or use of iterative reconstruction technique. KUB X-Ray 11/22/19 06:00 IMPRESSION: Small bowel obstruction. Small Bowel X-Ray 11/22/19 09:54 IMPRESSION: NO CONTRAST SEEN WITHIN THE COLON ON THE 21 HOUR DELAY FILM, CONSISTENT WITH OBSTRUCTION. MARKED DISTAL SMALL BOWEL DILATATION. Assessment & Plan - Diagnosis (1) Small bowel obstruction due to adhesions Is this a current diagnosis for this admission?: Yes - Plan Summary Plan Summary: This is a 34-year-old male status post exploratory laparotomy with lysis of adhesions for a complete small bowel obstruction. The patient is doing well today. He reports passing flatus. I have removed his NG tube today. It is okay for him to put ice chips and popsicles. If the patient continues to do well, will start full liquids tomorrow. Further recommendations will depend on the patient's clinical course.
[2019-11-24] MEDS: MORPHINE SULFATE 10 MG/ML INJ IV PRN (22:19)
[2019-11-24] MEDS: DEXTROSE 5%-LACTATED RINGERS 1,000 ML IV PRN (22:22)
[2019-11-25] MEDS: KETOROLAC TROMETHAMINE INJ/PF 30 MG/1 ML SDV IV SCH ×3 (01:02→17:15)
[2019-11-25] MEDS: DOXYCYCLINE HYCLATE 100 MG in DEXTROSE 5%-WATER 250 ML IV SCH ×2 (09:35→21:46)
[2019-11-25] MEDS: FAMOTIDINE INJ/PF 20 MG/2 ML SDV IV SCH ×2 (09:35→21:46)
[2019-11-25] MEDS: DEXTROSE 5%-LACTATED RINGERS 1,000 ML IV PRN (09:36)
--- NOTE | 2019-11-25 16:47 | PDOC PROGRESS REPORT ---
Subjective Progress Note for:: 11/25/19 Reason For Visit: SBO Physical Exam Vital Signs: Temp Pulse Resp BP Pulse Ox 98.3 F 61 16 122/75 100 11/25/19 14:57 11/25/19 14:57 11/25/19 14:57 11/25/19 14:57 11/25/19 14:57 Intake & Output 11/24/19 11/25/19 11/26/19 06:59 06:59 06:59 Intake Total 2950 1780 1250 Output Total 770 250 Balance 2180 1780 1000 Weight 68.9 kg 72.6 kg Results Laboratory Results: 11/22/19 04:30 11/22/19 04:30 Impressions: Acute Abdomen Series 11/20/19 18:15 IMPRESSION: NONSPECIFIC BOWEL GAS PATTERN WITHOUT EVIDENCE FOR OBSTRUCTION. Abdomen/Pelvis CT 11/20/19 23:09 IMPRESSION: 1. Findings compatible with mechanical small bowel obstruction with transition point in the pelvis. This exam was performed according to our departmental dose-optimization program, which includes automated exposure control, adjustment of the mA and/or kV according to patient size and/or use of iterative reconstruction technique. KUB X-Ray 11/22/19 06:00 IMPRESSION: Small bowel obstruction. Small Bowel X-Ray 11/22/19 09:54 IMPRESSION: NO CONTRAST SEEN WITHIN THE COLON ON THE 21 HOUR DELAY FILM, CONSISTENT WITH OBSTRUCTION. MARKED DISTAL SMALL BOWEL DILATATION. Assessment & Plan - Diagnosis (1) Small bowel obstruction due to adhesions Is this a current diagnosis for this admission?: Yes - Plan Summary Plan Summary: This is a 34-year-old male status post exploratory laparotomy with lysis of adhesions for a complete small bowel obstruction. The patient is doing well today. He reports passing flatus. He has tolerated NG removal. Advance diet. Home soon.
[2019-11-25] MEDS: MORPHINE SULFATE 10 MG/ML INJ IV PRN (22:59)
[2019-11-26] MEDS: KETOROLAC TROMETHAMINE INJ/PF 30 MG/1 ML SDV IV SCH (01:30)
[2019-11-26] MEDS: MORPHINE SULFATE 10 MG/ML INJ IV PRN ×2 (04:58→10:46)
--- NOTE | 2019-11-26 09:08 | PDOC DISCHARGE SUMMARY ---
General - Admit/Disc Date/PCP Admission Date/Primary Care Provider: 11/22/19 11:59 Discharge Date: 11/26/19 - Discharge Diagnosis Final Diagnosis: Small bowel obstruction secondary adhesions status post exploratory laparotomy, lysis of adhesions - Assessment Summary: Patient is a 34-year-old Afro[place] male presents to the emergency department complaining of abdominal pain nausea and vomiting. Has a history of exploratory laparotomy, appendectomy 15 years ago. Patient was diagnosed with small bowel obstruction and admitted to the surgical service for definitive management. The patient was kept n.p.o. on IV fluids and nasogastric decompression. He did not open up. He had a upper GI and small bowel follow-through contrast study which showed obstruction of the small bowel. He was taken to the operating room by Dr. Antoni Dash on 11/23/2019 and underwent exploratory laparotomy, lysis of adhesions, open approach. Patient tolerated procedure well. He had no small bowel resected. He had no postoperative complications, and over the next several days improved clinically. By the third postoperative day he was felt to receive dmaximum benefit of hospitalization and was discharged home. - Additional Information Resuscitation Status: Full Code Discharge Diet: As Tolerated Discharge Activity: Activity As Tolerated - Patient may shower at home. Remove midline dressing in 48 hours. Prescription for Percocet on chart. Patient to follow-up with [facility], Dr. Antoni Dash, in 1 week for staple removal. Referrals: ANTONI DASH MD [ACTIVE STAFF] - 12/06/19 8:45 am () Home Medications: No Home Medications 11/21/19 Additional Information: Patient will be discharged home to care of family, follow-up with [facility] in 1 week for staple removal with Dr. Antoni Dash. Option for Percocet on chart. Patient will shower and remove adhesive dressing in 48 hours. He will be on a reduced lifting status History of Present Illiness History of Present Illness: ELA LOVING is a 34 year old male Physical Exam Vital Signs: Temp Pulse Resp BP Pulse Ox 98.0 F 74 18 123/76 100 11/26/19 08:00 11/26/19 08:00 11/26/19 08:00 11/26/19 08:00 11/26/19 08:00 Intake & Output 11/25/19 11/26/1920 06:59 06:59 06:59 Intake Total 1780 2870 Output Total 250 Balance 1780 2620 Weight 72.6 kg 72.4 kg Results Laboratory Results: WBC 8.4 10^3/uL (4.0-10.5) 11/22/19 04:30 RBC 4.70 10^6/uL (4.35-5.55) 11/22/19 04:30 Hgb 14.7 g/dL (13.5-17.0) D 11/22/19 04:30 Hct 42.9 % (37.9-51.0) 11/22/19 04:30 MCV 91 fl (80-97) 11/22/19 04:30 MCH 31.3 pg (27.0-33.4) 11/22/19 04:30 MCHC 34.3 g/dL (32.0-36.0) 11/22/19 04:30 RDW 13.9 % (11.5-14.0) 11/22/19 04:30 Plt Count 253 10^3/uL (150-450) 11/22/19 04:30 Lymph % (Auto) 27.4 % (13-45) 11/22/19 04:30 Braxton % (Auto) 10.7 % (3-13) 11/22/19 04:30 Eos % (Auto) 2.8 % (0-6) 11/22/19 04:30 Baso % (Auto) 0.8 % (0-2) 11/22/19 04:30 Absolute Neuts (auto) 4.9 10^3/uL (1.7-8.2) 11/22/19 04:30 Absolute Lymphs (auto) 2.3 10^3/uL (0.5-4.7) 11/22/19 04:30 Absolute Monos (auto) 0.9 10^3/uL (0.1-1.4) 11/22/19 04:30 Absolute Eos (auto) 0.2 10^3/uL (0.0-0.6) 11/22/19 04:30 Absolute Basos (auto) 0.1 10^3/uL (0.0-0.2) 11/22/19 04:30 Seg Neutrophils % 58.3 % (42-78) 11/22/19 04:30 Sodium 135.2 mmol/L (137-145) L 11/22/19 04:30 Potassium 3.9 mmol/L (3.6-5.0) 11/22/19 04:30 Chloride 100 mmol/L (98-107) 11/22/19 04:30 Carbon Dioxide 29 mmol/L (22-30) 11/22/19 04:30 Anion Gap 6 (5-19) 11/22/19 04:30 BUN 12 mg/dL (7-20) 11/22/19 04:30 Creatinine 1.25 mg/dL (0.52-1.25) 11/22/19 04:30 Est GFR ( Amer) > 60 (>60) 11/22/19 04:30 Est GFR (MDRD) Non-Af > 60 (>60) 11/22/19 04:30 Glucose 87 mg/dL (75-110) 11/22/19 04:30 Calcium 9.3 mg/dL (8.4-10.2) 11/22/19 04:30 Total Bilirubin 0.8 mg/dL (0.2-1.3) 11/20/19 18:35 Direct Bilirubin 0.0 mg/dL (0.0-0.4) 11/20/19 18:35 Neonat Total Bilirubin Not Reportable 11/20/19 18:35 Neonat Direct Bilirubin Not Reportable 11/20/19 18:35 Neonat Indirect Bili Not Reportable 11/20/19 18:35 AST 25 U/L (17-59) 11/20/19 18:35 ALT 13 U/L (<50) 11/20/19 18:35 Alkaline Phosphatase 68 U/L (38-126) 11/20/19 18:35 Total Protein 8.4 g/dL (6.3-8.2) H 11/20/19 18:35 Albumin 5.0 g/dL (3.5-5.0) 11/20/19 18:35 Lipase 197.3 U/L (23-300) 11/20/19 18:35 Urine Color YELLOW 11/20/19 18:35 Urine Appearance SLIGHTLY-CLOUDY 11/20/19 18:35 Urine pH 6.0 (5.0-9.0) 11/20/19 18:35 Ur Specific [place] 1.031 11/20/19 18:35 Urine Protein 100 mg/dL (NEGATIVE) H 11/20/19 18:35 Urine Glucose (UA) NEGATIVE mg/dL (NEGATIVE) 11/20/19 18:35 Urine Ketones 80 mg/dL (NEGATIVE) H 11/20/19 18:35 Urine Blood MODERATE (NEGATIVE) H 11/20/19 18:35 Urine Nitrite NEGATIVE (NEGATIVE) 11/20/19 18:35 Urine Bilirubin NEGATIVE (NEGATIVE) 11/20/19 18:35 Urine Urobilinogen NEGATIVE mg/dL (<2.0) 11/20/19 18:35 Ur Leukocyte Esterase SMALL (NEGATIVE) H 11/20/19 18:35 Urine WBC 5-10 /HPF 11/20/19 18:35 Ur Squamous Epith Cells MANY /HPF 11/20/19 18:35 Amorphous Sediment 3+ 11/20/19 18:35 Urine Mucus 1+ 11/20/19 18:35 Urine Ascorbic Acid NEGATIVE (NEGATIVE) 11/20/19 18:35 Urine Opiates Screen NEGATIVE 11/20/19 18:35 Urine Methadone Screen NEGATIVE 11/20/19 18:35 Ur Barbiturates Screen NEGATIVE 11/20/19 18:35 Ur Phencyclidine Scrn NEGATIVE 11/20/19 18:35 Ur Amphetamines Screen NEGATIVE 11/20/19 18:35 U Benzodiazepines Scrn NEGATIVE 11/20/19 18:35 Urine Cocaine Screen NEGATIVE 11/20/19 18:35 U Marijuana (THC) Screen UNCONFIRMED POSITIVE 11/20/19 18:35 Chlamydia DNA (PCR) DETECTED (NOT DETECT) H 11/21/19 02:35 N.gonorrhoeae DNA (PCR) NOT DETECTED (NOT DETECT) 11/21/19 02:35 SARS-CoV-2 (PCR) NEGATIVE (NEGATIVE) 11/23/19 09:45 Impressions: Acute Abdomen Series 11/20/19 18:15 IMPRESSION: NONSPECIFIC BOWEL GAS PATTERN WITHOUT EVIDENCE FOR OBSTRUCTION. Abdomen/Pelvis CT 11/20/19 23:09 IMPRESSION: 1. Findings compatible with mechanical small bowel obstruction with transition point in the pelvis. This exam was performed according to our departmental dose-optimization program, which includes automated exposure control, adjustment of the mA and/or kV according to patient size and/or use of iterative reconstruction technique. KUB X-Ray 11/21/19 08:00 IMPRESSION: The tip and side hole of the enteric tube project within the gastric lumen. KUB X-Ray 11/22/19 06:00 IMPRESSION: Small bowel obstruction. Small Bowel X-Ray 11/22/19 09:54 IMPRESSION: NO CONTRAST SEEN WITHIN THE COLON ON THE 21 HOUR DELAY FILM, CONSISTENT WITH OBSTRUCTION. MARKED DISTAL SMALL BOWEL DILATATION.
[2019-11-26] MEDS: FAMOTIDINE INJ/PF 20 MG/2 ML SDV IV SCH (09:58)
[2019-11-26] MEDS: DOXYCYCLINE HYCLATE 100 MG in DEXTROSE 5%-WATER 250 ML IV SCH (09:59)
[2019-11-26 10:52] VITALS: BP 122/74
== END 2019-11-26 11:58 | disposition home or self-care (01) | DRG 337 ==
LOC: ER 16:37 → EH 11-21 02:13 → 4N 11-21 03:20 → OBSVTOIN 11-22 11:59
PROVIDERS: ATTEND Surgery
PROC: 0DN80ZZ Release Small Intestine, Open Approach (ICD-10-PCS; principal; 2019-11-23 09:30)
DX: K56.52 Intestinal adhesions [bands] with complete obstruction (principal); F17.210 Nicotine dependence, cigarettes, uncomplicated; Z90.49 Acquired absence of other specified parts of digestive tract; F32.9 Major depressive disorder, single episode, unspecified; F12.90 Cannabis use, unspecified, uncomplicated; Z20.828 Contact with and (suspected) exposure to other viral communicable diseases
CPT/HCPCS: 36415; 74018; 74022; 74177; 74250; 790; 80048; 80053; 80307; 81001; 83690; 85025; 87491; 87591; 87635; 94799; 96361; 96374; 96375; 99140; 99285; C9290; C9803; G0378; J0131; J0330; J0456; J1100; J1170; J1885; J2250; J2270; J2405; J2704; J3010; J3490; J7030; J7060; J7121; S0028

== ENCOUNTER 2019-11-28 02:03 | Inpatient (IN) | payer SELFPAY ==
[2019-11-28] MEDS ORDERED: OXYCODONE-ACETAMINOPHEN 5-325 MG TABLET PO ONE (02:23)
[2019-11-28] MEDS ORDERED: ONDANSETRON 4 MG TAB.RAPDIS PO ONE (02:23)
[2019-11-28] MEDS ORDERED: NORMAL SALINE 1000 ML 1,000 ML IV ONE ×2 (02:23→05:51)
--- NOTE | 2019-11-28 02:25 | ER Document Report ---
ED Medical Screen (RME) - General Chief Complaint: Post Surgical Pain Stated Complaint: POST OP PAIN/SHORTNESS OF BREATH Time Seen by Provider: 11/28/19 02:18 Notes: 34-year-old male that comes emergency department for chief complaint of abdomin al pain, nausea, and 3 episodes of vomiting. He is 5 days status post exploratory laparotomy with removal of adhesions which had caused a small bowel obstruction, this was performed by Dr. Roberts at this facility. He denies fever, any concerns about the wound, he states he was doing fine until today. He states he moved his bowels well until today. Only other reported history is appendectomy. TRAVEL OUTSIDE OF THE [place] IN LAST 30 DAYS: No - Related Data Allergies/Adverse Reactions: No Known Allergies Allergy (Verified 06/30/17 12:39) Past Medical History Renal/ Medical History: Denies: Hx Peritoneal Dialysis Psychiatric Medical History: Reports: Hx Depression Past Surgical History: Reports: Hx Appendectomy - Immunizations Immunizations up to date: Yes Hx Diphtheria, Pertussis, Tetanus Vaccination: Yes Physical Exam - Vital signs Vitals: Temp Pulse Resp BP Pulse Ox 98.7 F 99 20 116/80 99 11/28/19 02:09 11/28/19 02:09 11/28/19 02:09 11/28/19 02:09 11/28/19 02:09 - Abdominal Tenderness: Tender - There is some generalized tenderness, midline stapled abdominal wound without bleeding, discharge, or noted erythema. Exam very limited by sitting position in triage Course - Re-evaluation Re-evalutation: I have greeted and performed a rapid initial assessment of this patient. A comprehensive ED assessment and evaluation of the patient, analysis of test r esults and completion of the medical decision making process will be conducted by additional ED providers. - Vital Signs Vital signs: Temp Pulse Resp BP Pulse Ox 98.7 F 99 20 116/80 99 11/28/19 02:09 11/28/19 02:09 11/28/19 02:09 11/28/19 02:09 11/28/19 02:09
--- NOTE | 2019-11-28 02:56 | RADIOLOGY REPORT (SQ) ---
CLINICAL INDICATION: vomiting, hx bowel obstruction. TECHNIQUE: 2 image(s) of the abdomen. Single image(s) of the chest. COMPARISON: November 22, 2019. CORRELATION: None. FINDINGS: Prominent air-filled loops of small bowel. Nondifferential air-fluid levels. Residual contrast within the colon. Recent postsurgical change. No evidence of free air. Visualized bones are unremarkable. The cardiomediastinal silhouette is normal. The lungs are grossly clear. No evidence of effusion or pneumothorax. The visualized bones are unremarkable. IMPRESSION: Presumed ileus.. No evidence of active intrathoracic disease.
--- NOTE | 2019-11-28 03:38 | ER Document Report ---
ED GI/ - General TRAVEL OUTSIDE OF THE [place] IN LAST 30 DAYS: No <SNADRA MAYBERRY - Last Filed: 11/28/19 08:10> <ENRIQUE MANRIQUE - Last Filed: 11/28/19 08:43> - General Chief Complaint: Post Surgical Pain Stated Complaint: POST OP PAIN Time Seen by Provider: 11/28/19 02:18 Notes: Patient is a 34-year-old male that comes to the emergency department for chief complaint of abdominal pain, nausea, and 3 episodes of vomiting. He is 5 days status post exploratory laparotomy with removal of adhesions which had caused a small bowel obstruction, this was performed by Dr. Roberts at this facility. He denies fever, any concerns about the wound, he states he was doing fine until today. He states he moved his bowels well until today but had one very small bowel movement in the morning and none since. Only other reported history is appendectomy. He states he is not on any antibiotics or pain medications. (SANDRA MAYBERRY) - Related Data Allergies/Adverse Reactions: No Known Allergies Allergy (Verified 06/30/17 12:39) Past Medical History - General Information source: Patient - Social History Smoking Status: Former Smoker Frequency of alcohol use: None Drug Abuse: None Lives with: Family Family History: Reviewed & Not Pertinent Patient has homicidal ideation: No Renal/ Medical History: Denies: Hx Peritoneal Dialysis Psychiatric Medical History: Reports: Hx Depression Past Surgical History: Reports: Hx Appendectomy, Hx Bowel Surgery - Removal of adhesions causing a small bowel obstruction - Immunizations Immunizations up to date: Yes Hx Diphtheria, Pertussis, Tetanus Vaccination: Yes <SANDRA MAYBERRY - Last Filed: 11/28/19 08:10> Review of Systems - Review of Systems Constitutional: No symptoms reported EENT: No symptoms reported Cardiovascular: No symptoms reported Respiratory: No symptoms reported Gastrointestinal: See HPI Genitourinary: No symptoms reported Male Genitourinary: No symptoms reported Musculoskeletal: No symptoms reported Skin: No symptoms reported Hematologic/Lymphatic: No symptoms reported Neurological/Psychological: No symptoms reported <SANDRA MAYBERRY - Last Filed: 11/28/19 08:10> Physical Exam <SANDRA MAYBERRY - Last Filed: 11/28/19 08:10> - Vital signs Vitals: Temp Pulse Resp BP Pulse Ox 98.7 F 99 20 116/80 99 11/28/19 02:09 11/28/19 02:09 11/28/19 02:09 11/28/19 02:09 11/28/19 02:09 - Notes Notes: GENERAL: Patient restless and appears slightly uncomfortable HEAD: Normocephalic, atraumatic. EYES: Pupils equal, round, and reactive to light. Extraocular movements intact. ENT: Oral mucosa dry, tongue midline. Oropharynx unremarkable. Airway patent. NECK: Full range of motion. Supple. Trachea midline. No lymphadenopathy. LUNGS: Clear to auscultation bilaterally, no wheezes, rales, or rhonchi. No respiratory distress. Non-tender chest wall. HEART: Regular rate and rhythm. No murmur ABDOMEN: There is a midline abdominal wound closed with clinton, there is no significant tenderness, surrounding erythema, current bleeding or purulent drainage. No overt swelling of the abdomen. There is generalized tenderness over the abdomen which is equal throughout, nonspecific, no guarding. Bowel sounds are still present. EXTREMITIES: Moves all 4 extremities spontaneously. No edema, normal radial and dorsalis pedis pulses bilaterally. No cyanosis. BACK: no cervical, thoracic, lumbar midline tenderness. No saddle anesthesia, normal distal neurovascular exam. Moves all extremities in full range of motion. NEUROLOGICAL: Alert and oriented x3. Normal speech. Cranial nerves II through XII grossly intact. Strength 5/5 in all extremities. PSYCH: Normal affect, normal mood. SKIN: Warm, dry, normal turgor. No rashes or lesions noted. (SANDRA MAYBERRY) Course - Laboratory Result Diagrams: 11/28/19 03:15 11/28/19 03:15 <SANDRA MAYBERRY - Last Filed: 11/28/19 08:10> - Laboratory Result Diagrams: 11/28/19 03:15 11/28/19 03:15 <ENRIQUE MANRIQUE - Last Filed: 11/28/19 08:43> - Re-evaluation Re-evalutation: CBC, chemistry, lipase unremarkable. Patient had difficulty urinating at first until given IV fluids, this does show 80 ketones. Acute abdominal series with air-fluid levels, possible ileus. Because of patient's vomiting, postop pain, CAT scan with oral contrast will be performed. Patient immediately vomited with trying oral contrast, only vomited a small amount. He was medicated, was able to do this without vomiting very slowly afterwards. He was remedicated and completed 1 bottle. Unable to do anymore, scanned with just this contrast amount. 11/28/19 CAT scan showing high-grade small bowel obstruction with transition point somewhere near the right lower quadrant. NG tube will be placed, he will be given lidocaine nebulizer first. I discussed the patient, he states agreement. Will discuss with surgery on-call. I spoke with Dr. Law, general surgery, he will evaluate the patient. (SANDRA MAYBERRY) 11/28/19 08:43 Patient resting comfortably on stretcher, NG tube on intermittent suction in place. Denies nausea. Reports that he is starting to have generalized abdominal pain again. Will order medication. No acute distress. Orders have been placed for admission. (ENRIQUE MANRIQUE) - Vital Signs Vital signs: Temp Pulse Resp BP Pulse Ox 98.4 F 84 18 120/84 98 11/28/19 06:28 11/28/19 06:28 11/28/19 06:28 11/28/19 06:28 11/28/19 06:28 - Laboratory Laboratory results interpreted by me: 11/28/19 11/28/19 03:15 05:44 Lymph % (Auto) 8.9 L Seg Neutrophils % 82.4 H Urine Protein 30 H Urine Ketones 80 H Discharge - Discharge Admitting Provider: Surgicalist Unit Admitted: Surgical Floor <SANDRA MAYBERRY - Last Filed: 11/28/19 08:10> <ENRIQUE MANRIQUE - Last Filed: 11/28/19 08:43> - Discharge Clinical Impression: Small bowel obstruction Vomiting Qualifiers: Vomiting type: unspecified Vomiting Intractability: unspecified Nausea presence: with nausea Qualified Code(s): R11.2 - Nausea with vomiting, unspecified Condition: Stable Disposition: ADMITTED INPATIENT
[2019-11-28] MEDS ORDERED: METOCLOPRAMIDE HCL INJ/PF 10 MG/2 ML SDV IV ONE ×2 (03:47→05:51)
[2019-11-28] MEDS ORDERED: FENTANYL CITRATE INJ/PF 100 MCG/2 ML AMPUL IV ONE ×3 (03:47→08:42)
[2019-11-28 03:48] LABS: ABSOLUTE EOSINOPHILS # (AUTO) 0.3 10^3/uL (0.0-0.6); ABSOLUTE LYMPHOCYTES (AUTO) 0.9 10^3/uL (0.5-4.7); ABSOLUTE MONOCYTES (AUTO) 0.5 10^3/uL (0.1-1.4); ABSOLUTE NEUT (AUTO) 8.1 10^3/uL (1.7-8.2); BASOPHILS % (AUTO) 0.4 % (0-2); EOSINOPHILS % (AUTO) 2.8 % (0-6); HEMATOCRIT 45.7 % (37.9-51.0); HEMOGLOBIN 15.8 g/dL (13.5-17.0); LYMPHOCYTES % (AUTO) 8.9 % (13-45); MEAN CORPUSCULAR HEMOGLOBIN 31.2 pg (27.0-33.4); MEAN CORPUSCULAR HGB CONC 34.6 g/dL (32.0-36.0); MEAN CORPUSCULAR VOLUME 90 fl (80-97); MONOCYTES % (AUTO) 5.5 % (3-13); PLATELET COUNT 336 10^3/uL (150-450); RED BLOOD COUNT 5.07 10^6/uL (4.35-5.55); RED CELL DISTRIBUTION WIDTH 13.9 % (11.5-14.0); SEGMENTED NEUTROPHILS % (AUTO) 82.4 % (42-78); TOTAL CELLS COUNTED % (AUTO) 100 %; WHITE BLOOD COUNT 9.8 10^3/uL (4.0-10.5)
[2019-11-28 04:00] LABS: BLOOD UREA NITROGEN 11 mg/dL (7-20); CALCIUM 10.1 mg/dL (8.4-10.2); CARBON DIOXIDE 27 mmol/L (22-30); CHLORIDE 103 mmol/L (98-107); GLUCOSE 105 mg/dL (75-110); POTASSIUM 4.2 mmol/L (3.6-5.0)
[2019-11-28 04:01] LABS: ALBUMIN 4.7 g/dL (3.5-5.0); ALKALINE PHOSPHATASE 57 U/L (38-126); ANION GAP 10 (5-19); ASPARTATE AMINO TRANSFERASE 37 U/L (17-59); BILIRUBIN,DIRECT 0.1 mg/dL (0.0-0.4); BILIRUBIN,TOTAL 0.6 mg/dL (0.2-1.3); TOTAL PROTEIN 7.9 g/dL (6.3-8.2)
[2019-11-28 06:14] LABS: APPEARANCE,URINE CLEAR; BILIRUBIN,URINE NEGATIVE (NEGATIVE); COLOR,URINE YELLOW; GLUCOSE, URINE NEGATIVE (NEGATIVE); KETONES,URINE 80 mg/dL (NEGATIVE); LEUKOCYTE ESTERASE,URINE NEGATIVE (NEGATIVE); NITRITE,URINE NEGATIVE (NEGATIVE); PROTEIN,URINE 30 mg/dL (NEGATIVE); URINE SPECIFIC GRAVITY 1.026; UROBILINOGEN,URINE NEGATIVE mg/dL (<2.0)
--- NOTE | 2019-11-28 07:49 | RADIOLOGY REPORT (SQ) ---
EXAM: CT Abdomen and Pelvis With Intravenous Contrast EXAM DATE/TIME: 11/28/2019 7:08 am CLINICAL HISTORY: The patient is 34 years old and is Male; vomiting, hx abd surgery, ?SBO TECHNIQUE: Axial computed tomography images of the abdomen and pelvis with intravenous contrast. Sagittal and coronal reformatted images were created and reviewed. Delayed images were obtained. This CT exam was performed using one or more of the following dose reduction techniques: automated exposure control, adjustment of the mA and/or kV according to patient size, and/or use of iterative reconstruction technique. COMPARISON: CT abdomen pelvis from 11/21/2019 FINDINGS: LUNG BASES: Unremarkable. No mass. No consolidation. ABDOMEN: LIVER: Unremarkable. No obvious mass. GALLBLADDER AND BILE DUCTS: Unremarkable. No calcified stones. No significant biliary ductal dilatation. PANCREAS: Unremarkable. No ductal dilation. No obvious mass. SPLEEN: Unremarkable. No splenomegaly. ADRENALS: Unremarkable. No adrenal nodules or masses identified. KIDNEYS AND URETERS: Unremarkable. No solid mass. No hydronephrosis. STOMACH AND BOWEL: The stomach is moderately dilated with dilute oral contrast. There is also dilatation of numerous loops of small bowel. The degree of small bowel distention appears slightly worsened since the prior study. Suspected transition point in the right lower quadrant or right upper pelvis. However, the transition point is difficult to clearly visualize due to the lack of oral contrast. Findings are compatible with small bowel obstruction. The colon is normal in caliber. PELVIS: APPENDIX: The appendix is not clearly visualized on this exam. BLADDER: Unremarkable. No obvious mass. REPRODUCTIVE: Unremarkable as visualized. ABDOMEN and PELVIS: INTRAPERITONEAL SPACE: Small amount of free fluid in the abdomen and pelvis. No free air. No obvious abscess. BONES/JOINTS: No acute fracture. No dislocation. SOFT TISSUES: Cutaneous clinton in place within the midline of the anterior abdominal wall. VASCULATURE: Unremarkable. No abdominal aortic aneurysm. LYMPH NODES: No significant lymph node enlargement. IMPRESSION: 1. High-grade small bowel obstruction with suspected transition point in the right lower quadrant or right upper pelvis. The degree of small bowel distention appears slightly worsened since the prior study. 2. Small amount of free fluid in the abdomen and pelvis.
[2019-11-28] MEDS ORDERED: LIDOCAINE 1% INJ-PF (10 MG/ML) 30 ML SDV NEB ONE (07:50)
[2019-11-28] MEDS ORDERED: PHARMACY COMMUNICATION ORDER MC NR (08:30)
[2019-11-28] MEDS: ONDANSETRON HCL INJ/PF 4 MG/2 ML SDV IV PRN (09:23)
[2019-11-28] MEDS ORDERED: FAMOTIDINE 20 MG TABLET NG SCH (10:00)
--- NOTE | 2019-11-28 10:06 | RADIOLOGY REPORT (SQ) ---
EXAM DESCRIPTION: KUB/ABDOMEN (SINGLE VIEW) IMAGES COMPLETED DATE/TIME: 11/28/2019 8:40 am REASON FOR STUDY: Check Placement of NG Tube COMPARISON: CT abdomen pelvis 11/21/2019, 11/28/2019 Abdominal films 11/21/2019, 11/22/2019, 11/28/2019 NUMBER OF VIEWS: One view. TECHNIQUE: Upright radiographic image of the abdomen acquired for nasogastric tube placement. LIMITATIONS: Pelvis cropped from the field of view FINDINGS: Nasogastric tube tip and side port in the stomach. Lung bases are clear. Air-fluid levels in mildly dilated small bowel loops under the left hemidiaphragm IV contrast in nondilated renal collecting systems post CT. Minimal residual oral contrast in stool in the ascending colon IMPRESSION: Nasogastric tube tip and side port in the stomach. Persistent air-filled dilated left upper quadrant small bowel loops TECHNICAL DOCUMENTATION: JOB ID: [id number] 2010 [employer]- All Rights Reserved Reading location - IP/workstation name: [email or web address]
[2019-11-28] MEDS: KETOROLAC TROMETHAMINE INJ/PF 30 MG/1 ML SDV IV PRN (11:13)
[2019-11-28] MEDS: DEXTROSE 5%-LACTATED RINGERS 1,000 ML IV PRN ×3 (11:13→22:41)
[2019-11-28] MEDS ORDERED: FAMOTIDINE INJ/PF 20 MG/2 ML SDV IV ONE (11:58)
[2019-11-28] MEDS: ACETAMINOPHEN 1,000 MG/100 ML RTUPB IV SCH ×2 (12:07→17:06)
[2019-11-28] MEDS: ENOXAPARIN SODIUM INJ 40 MG/0.4 ML DISP.SYRIN SUBCUT SCH (12:09)
[2019-11-28] MEDS: FAMOTIDINE INJ/PF 20 MG/2 ML SDV IV SCH ×2 (12:13→21:04)
[2019-11-28] MEDS ORDERED: ACETAMINOPHEN 1,000 MG/100 ML RTUPB IV SCH (14:00)
--- NOTE | 2019-11-28 20:06 | PDOC H&P ---
History of Present Illness Admission Date/PCP: 11/28/19 08:29 Patient complains of: Abdominal pain, nausea, vomiting History of Present Illness: ELA LOVING is a 34 year old male who is recently status post exploratory laparotomy for small bowel obstruction. The patient reports that he continues to pass flatus, however has not had a bowel movement in several days. He began having abdominal distention, nausea, and vomiting starting yesterday. It worsened, and the patient presented to the emergency department for evaluation. He reports generalized abdominal pain that he rates as 6 out of 10. It is crampy and constant. It does not radiate. Palpation makes it worse. Nothing makes it better. Patient denies fevers, chills, chest pain, shortness of breath, dizziness, orthostasis, malaise, fatigue, blurry vision. Past Medical History Psychiatric Medical History: Reports: Depression Past Surgical History Past Surgical History: Reports: Appendectomy, Other - Exploratory laparotomy with lysis of adhesions Social History Lives with: Family Smoking Status: Former Smoker Frequency of Alcohol Use: Rare Hx Recreational Drug Use: Yes Drugs: Marijuana Family History Family History: Reviewed & Not Pertinent Parental Family History Reviewed: Yes Children Family History Reviewed: Yes Sibling(s) Family History Reviewed.: Yes Medication/Allergy Home Medications: Ibuprofen [Motrin 600 mg Tablet] 600 mg PO Q8HP PRN 11/28/19 Allergies/Adverse Reactions: No Known Allergies Allergy (Verified 06/30/17 12:39) Review of Systems Constitutional: PRESENT: anorexia. ABSENT: chills, fatigue, fever(s), h eadache(s), weakness Eyes: ABSENT: visual disturbances Ears: ABSENT: hearing changes Nose, Mouth, and Throat: ABSENT: sore throat Cardiovascular: ABSENT: chest pain Respiratory: ABSENT: cough, dyspnea Gastrointestinal: PRESENT: abdominal pain, bloating, constipation Genitourinary: ABSENT: dysuria Musculoskeletal: ABSENT: back pain Integumentary: ABSENT: pruritus, rash Neurological: ABSENT: confusion, convulsions, dizziness Psychiatric: ABSENT: anxiety, depression Endocrine: ABSENT: cold intolerance, heat intolerance Hematologic/Lymphatic: ABSENT: easy bleeding, easy bruising Physical Exam Vital Signs: Temp Pulse Resp BP Pulse Ox 99.4 F 70 16 121/74 100 11/28/19 16:49 11/28/19 16:49 11/28/19 16:49 11/28/19 16:49 11/28/19 16:49 Intake & Output 11/27/19 11/28/19 11/29/19 06:59 06:59 06:59 Intake Total 1000 1613 Output Total 300 Balance 1000 1313 Weight 66.6 kg General appearance: PRESENT: no acute distress, cooperative Head exam: PRESENT: atraumatic, normocephalic Eye exam: PRESENT: EOMI, PERRLA. ABSENT: scleral icterus Mouth exam: PRESENT: moist, neck supple Neck exam: ABSENT: meningismus, tenderness, thyromegaly, tracheal deviation Respiratory exam: PRESENT: unlabored. ABSENT: tachypnea, wheezes Cardiovascular exam: ABSENT: tachycardia Vascular exam: PRESENT: normal capillary refill. ABSENT: pallor GI/Abdominal exam: PRESENT: distended - Mild, soft. ABSENT: firm, guarding, hernia, tenderness Rectal exam: PRESENT: deferred Extremities exam: ABSENT: clubbing Musculoskeletal exam: ABSENT: deformity Neurological exam: PRESENT: alert, awake, oriented to person, oriented to place, oriented to time, oriented to situation, CN II-XII grossly intact Psychiatric exam: ABSENT: agitated, anxious, depressed Focused psych exam: ABSENT: delusional Skin exam: ABSENT: cyanosis, erythema, jaundice Results Laboratory Results: 11/28/19 03:15 11/28/19 03:15 11/28/19 11/28/19 11/28/19 03:15 03:15 05:44 WBC 9.8 RBC 5.07 Hgb 15.8 Hct 45.7 MCV 90 MCH 31.2 MCHC 34.6 RDW 13.9 Plt Count 336 Seg Neutrophils % 82.4 H Sodium 139.5 Potassium 4.2 Chloride 103 Carbon Dioxide 27 Anion Gap 10 BUN 11 Creatinine 0.94 Est GFR ( Amer) > 60 Glucose 105 Calcium 10.1 Total Bilirubin 0.6 AST 37 Alkaline Phosphatase 57 Total Protein 7.9 Albumin 4.7 Lipase 72.0 Urine Color YELLOW Urine Appearance CLEAR Urine pH 7.0 Ur Specific [place] 1.026 Urine Protein 30 H Urine Glucose (UA) NEGATIVE Urine Ketones 80 H Urine Blood NEGATIVE Urine Nitrite NEGATIVE Ur Leukocyte Esterase NEGATIVE Urine WBC (Auto) 3 Urine RBC (Auto) 5 Impressions: Abdomen/Pelvis CT 11/28/19 00:00 IMPRESSION: 1. High-grade small bowel obstruction with suspected transition point in the right lower quadrant or right upper pelvis. The degree of small bowel distention appears slightly worsened since the prior study. 2. Small amount of free fluid in the abdomen and pelvis. Acute Abdomen Series 11/28/19 02:23 IMPRESSION: Presumed ileus.. No evidence of active intrathoracic disease. KUB X-Ray 11/28/19 08:22 IMPRESSION: Nasogastric tube tip and side port in the stomach. Persistent air-filled dilated left upper quadrant small bowel loops Assessment & Plan - Diagnosis (1) Nausea and vomiting Qualifiers: Vomiting type: unspecified Vomiting Intractability: non-intractable Qualified Code(s): R11.2 - Nausea with vomiting, unspecified Is this a current diagnosis for this admission?: Yes (2) Constipation due to opioid therapy Is this a current diagnosis for this admission?: Yes - Plan Summary Plan Summary: This is a 34-year-old male status post laparotomy for bowel obstruction. The patient presents with abdominal distention, nausea, vomiting, and an inability to have a bowel movement for the last 3 days. He continues to pass flatus. His CT scan was reviewed by me. He has distended loops of small bowel, however is a large amount of stool in the colon, with contrast related to his previous hospital admission. I believe his small bowel dilation is related to the large amount of constipation that he exhibits. I will admit in the hospital, give him a large volume enema, and repeat his x-rays tomorrow. Nonnarcotics for pain, due to his opioid-induced constipation. Further recommendations and treatment will be determined by the patient's clinical course.
[2019-11-28] MEDS ORDERED: FAMOTIDINE INJ/PF 20 MG/2 ML SDV IV SCH (22:00)
[2019-11-29] MEDS: ACETAMINOPHEN 1,000 MG/100 ML RTUPB IV SCH ×3 (01:19→18:46)
--- NOTE | 2019-11-29 04:12 | RADIOLOGY REPORT (SQ) ---
Abdomen single view on 11/29/2019 at 3:28 AM Clinical indications: Small bowel obstruction COMPARISON: X-ray and CT from 11/28/2019 FINDINGS: Skin clinton are noted overlying the mid lower abdomen and pelvis. NG tube tip is in the body of the stomach. There has been improvement in small bowel distention when compared with the crew manager film from the recent CT consistent with improved small bowel obstruction. No increased stool to suggest constipation is noted. No bony abnormality is noted. IMPRESSION: Findings consistent with an improving small bowel obstruction.
[2019-11-29] MEDS: DEXTROSE 5%-LACTATED RINGERS 1,000 ML IV PRN (05:00)
[2019-11-29 05:50] LABS: ABSOLUTE BASOPHILS # (AUTO) 0.1 10^3/uL (0.0-0.2); ABSOLUTE EOSINOPHILS # (AUTO) 0.4 10^3/uL (0.0-0.6); ABSOLUTE MONOCYTES (AUTO) 0.6 10^3/uL (0.1-1.4); ABSOLUTE NEUT (AUTO) 3.1 10^3/uL (1.7-8.2); EOSINOPHILS % (AUTO) 6.8 % (0-6); HEMATOCRIT 35.8 % (37.9-51.0); LYMPHOCYTES % (AUTO) 32.2 % (13-45); MEAN CORPUSCULAR HEMOGLOBIN 31.6 pg (27.0-33.4); MEAN CORPUSCULAR HGB CONC 35.2 g/dL (32.0-36.0); MEAN CORPUSCULAR VOLUME 90 fl (80-97); MONOCYTES % (AUTO) 9.6 % (3-13); PLATELET COUNT 254 10^3/uL (150-450); RED BLOOD COUNT 3.97 10^6/uL (4.35-5.55); RED CELL DISTRIBUTION WIDTH 13.7 % (11.5-14.0); SEGMENTED NEUTROPHILS % (AUTO) 50.4 % (42-78); TOTAL CELLS COUNTED % (AUTO) 100 %; WHITE BLOOD COUNT 6.2 10^3/uL (4.0-10.5)
[2019-11-29 05:52] LABS: HEMOGLOBIN 12.6 g/dL (13.5-17.0)
[2019-11-29 06:08] LABS: BLOOD UREA NITROGEN 8 mg/dL (7-20); CALCIUM 8.6 mg/dL (8.4-10.2); CARBON DIOXIDE 28 mmol/L (22-30); GLUCOSE 106 mg/dL (75-110); POTASSIUM 3.5 mmol/L (3.6-5.0)
[2019-11-29 06:13] LABS: CHLORIDE 105 mmol/L (98-107)
[2019-11-29 06:16] LABS: ANION GAP 4 (5-19)
--- NOTE | 2019-11-29 09:22 | PDOC PROGRESS REPORT ---
Subjective Progress Note for:: 11/29/19 Subjective:: Feels much better. Had bowel movements and is now passing gas. Patient states that his abdomen feels close back to normal. He is hungry. Reason For Visit: NAUSEA,VOMITING,SBO Physical Exam Vital Signs: Temp Pulse Resp BP Pulse Ox 98.3 F 57 L 18 120/86 H 100 11/29/19 01:16 11/29/19 01:16 11/29/19 01:16 11/29/19 01:16 11/29/19 01:16 Intake & Output 11/28/19 11/29/19 11/30/19 06:59 06:59 06:59 Intake Total 1000 3661 Output Total 300 Balance 1000 3361 Weight 66.6 kg 69.4 kg General appearance: PRESENT: no acute distress, cooperative GI/Abdominal exam: PRESENT: other - Soft, nondistended, nontender to palpation. NG tube was placed back to suction with only about 50 cc of clear fluid consistent with the water he recently drank. NG tube has been clamped since yesterday. Results Laboratory Results: 11/29/19 05:13 11/29/19 05:13 11/29/19 11/29/19 05:13 05:13 WBC 6.2 RBC 3.97 L Hgb 12.6 L D Hct 35.8 L MCV 90 MCH 31.6 MCHC 35.2 RDW 13.7 Plt Count 254 Seg Neutrophils % 50.4 Sodium 137.2 Potassium 3.5 L Chloride 105 Carbon Dioxide 28 Anion Gap 4 L BUN 8 Creatinine 0.98 Est GFR ( Amer) > 60 Glucose 106 Calcium 8.6 Impressions: Abdomen/Pelvis CT 11/28/19 00:00 IMPRESSION: 1. High-grade small bowel obstruction with suspected transition point in the right lower quadrant or right upper pelvis. The degree of small bowel distention appears slightly worsened since the prior study. 2. Small amount of free fluid in the abdomen and pelvis. Acute Abdomen Series 11/28/19 02:23 IMPRESSION: Presumed ileus.. No evidence of active intrathoracic disease. KUB X-Ray 11/29/19 00:00 IMPRESSION: Findings consistent with an improving small bowel obstruction. Assessment & Plan - Diagnosis (1) Constipation Is this a current diagnosis for this admission?: Yes Plan: Patient's clinical course more consistent with constipation rather than bowel obstruction. He is symptomatically markedly improved. Will DC NG tube and start a clear liquids. Possible discharge home later today or tomorrow depending on his progress.
[2019-11-29] MEDS: FAMOTIDINE INJ/PF 20 MG/2 ML SDV IV SCH ×2 (10:18→21:21)
[2019-11-29] MEDS: KETOROLAC TROMETHAMINE INJ/PF 30 MG/1 ML SDV IV PRN (10:19)
[2019-11-29] MEDS: ENOXAPARIN SODIUM INJ 40 MG/0.4 ML DISP.SYRIN SUBCUT SCH (10:19)
[2019-11-29] MEDS: ONDANSETRON HCL INJ/PF 4 MG/2 ML SDV IV PRN (10:25)
--- NOTE | 2019-11-29 21:39 | PDOC PROGRESS REPORT ---
Subjective Progress Note for:: 11/29/19 Subjective:: Feels well. Tolerating a solid diet well. Passing gas. Abdomen feels very close to normal. Reason For Visit: NAUSEA,VOMITING,SBO Physical Exam Vital Signs: Temp Pulse Resp BP Pulse Ox 98.1 F 61 18 116/81 100 11/29/19 18:55 11/29/19 18:55 11/29/19 18:55 11/29/19 18:55 11/29/19 18:55 Intake & Output 11/28/19 11/29/19 11/30/19 06:59 06:59 06:59 Intake Total 1000 3661 2400 Output Total 300 Balance 1000 3361 2400 Weight 66.6 kg 69.4 kg General appearance: PRESENT: no acute distress, cooperative GI/Abdominal exam: PRESENT: soft - Soft, nondistended, nontender to palpation. Results Laboratory Results: 11/29/19 05:13 11/29/19 05:13 11/29/19 11/29/19 05:13 05:13 WBC 6.2 RBC 3.97 L Hgb 12.6 L D Hct 35.8 L MCV 90 MCH 31.6 MCHC 35.2 RDW 13.7 Plt Count 254 Seg Neutrophils % 50.4 Sodium 137.2 Potassium 3.5 L Chloride 105 Carbon Dioxide 28 Anion Gap 4 L BUN 8 Creatinine 0.98 Est GFR ( Amer) > 60 Glucose 106 Calcium 8.6 Impressions: Abdomen/Pelvis CT 11/28/19 00:00 IMPRESSION: 1. High-grade small bowel obstruction with suspected transition point in the right lower quadrant or right upper pelvis. The degree of small bowel distention appears slightly worsened since the prior study. 2. Small amount of free fluid in the abdomen and pelvis. Acute Abdomen Series 11/28/19 02:23 IMPRESSION: Presumed ileus.. No evidence of active intrathoracic disease. KUB X-Ray 11/29/19 00:00 IMPRESSION: Findings consistent with an improving small bowel obstruction. Assessment & Plan - Diagnosis (1) Constipation Is this a current diagnosis for this admission?: Yes Plan: The obstructive nature of the constipation has resolved. Patient looks very good. Will discharge patient home. Encourage hydration. Will place him on Colace. Patient will no longer take his narcotics for pain. Follow-up at [facility] next week.
--- NOTE | 2019-11-29 21:42 | PDOC DISCHARGE SUMMARY ---
General - Admit/Disc Date/PCP Admission Date/Primary Care Provider: 11/28/19 08:29 Discharge Date: 11/29/19 - Discharge Diagnosis Final Diagnosis: Constipation resulting in vomiting - Assessment Summary: Patient was managed conservatively with initial NG decompression and enemas. Patient responded very well with multiple bowel movements. With the cessation of narcotics and the enemas, patient had resolution of his symptoms and was tolerating a solid diet at the time of discharge. Patient with no longer take narcotics at home. Patient is to stay well-hydrated and take Colace twice a day at home. Patient will be followed up at the [facility] next week. - Additional Information Resuscitation Status: Full Code Discharge Diet: As Tolerated - Stay well-hydrated with plenty of water intake. Discharge Activity: Activity As Tolerated - Stay active but avoid strenuous activity. Referrals: [facility] [Provider Group] - 12/06/19 8:45 am Home Medications: Ibuprofen [Motrin 600 mg Tablet] 600 mg PO Q8HP PRN 11/28/19 History of Present Illiness History of Present Illness: ELA LOVING is a 34 year old male Physical Exam Vital Signs: Temp Pulse Resp BP Pulse Ox 98.1 F 61 18 116/81 100 11/29/19 18:55 11/29/19 18:55 11/29/19 18:55 11/29/19 18:55 11/29/19 18:55 Intake & Output 11/28/19 11/29/19 11/30/19 06:59 06:59 06:59 Intake Total 1000 3661 2400 Output Total 300 Balance 1000 3361 2400 Weight 66.6 kg 69.4 kg Results Laboratory Results: WBC 6.2 10^3/uL (4.0-10.5) 11/29/19 05:13 RBC 3.97 10^6/uL (4.35-5.55) L 11/29/19 05:13 Hgb 12.6 g/dL (13.5-17.0) L D 11/29/19 05:13 Hct 35.8 % (37.9-51.0) L 11/29/19 05:13 MCV 90 fl (80-97) 11/29/19 05:13 MCH 31.6 pg (27.0-33.4) 11/29/19 05:13 MCHC 35.2 g/dL (32.0-36.0) 11/29/19 05:13 RDW 13.7 % (11.5-14.0) 11/29/19 05:13 Plt Count 254 10^3/uL (150-450) 11/29/19 05:13 Lymph % (Auto) 32.2 % (13-45) 11/29/19 05:13 [place] % (Auto) 9.6 % (3-13) 11/29/19 05:13 Eos % (Auto) 6.8 % (0-6) H 11/29/19 05:13 Baso % (Auto) 1.0 % (0-2) 11/29/19 05:13 Absolute Neuts (auto) 3.1 10^3/uL (1.7-8.2) 11/29/19 05:13 Absolute Lymphs (auto) 2.0 10^3/uL (0.5-4.7) 11/29/19 05:13 Absolute Monos (auto) 0.6 10^3/uL (0.1-1.4) 11/29/19 05:13 Absolute Eos (auto) 0.4 10^3/uL (0.0-0.6) 11/29/19 05:13 Absolute Basos (auto) 0.1 10^3/uL (0.0-0.2) 11/29/19 05:13 Seg Neutrophils % 50.4 % (42-78) 11/29/19 05:13 Sodium 137.2 mmol/L (137-145) 11/29/19 05:13 Potassium 3.5 mmol/L (3.6-5.0) L 11/29/19 05:13 Chloride 105 mmol/L (98-107) 11/29/19 05:13 Carbon Dioxide 28 mmol/L (22-30) 11/29/19 05:13 Anion Gap 4 (5-19) L 11/29/19 05:13 BUN 8 mg/dL (7-20) 11/29/19 05:13 Creatinine 0.98 mg/dL (0.52-1.25) 11/29/19 05:13 Est GFR ( Amer) > 60 (>60) 11/29/19 05:13 Est GFR (MDRD) Non-Af > 60 (>60) 11/29/19 05:13 Glucose 106 mg/dL (75-110) 11/29/19 05:13 Calcium 8.6 mg/dL (8.4-10.2) 11/29/19 05:13 Total Bilirubin 0.6 mg/dL (0.2-1.3) 11/28/19 03:15 Direct Bilirubin 0.1 mg/dL (0.0-0.4) 11/28/19 03:15 Neonat Total Bilirubin Not Reportable 11/28/19 03:15 Neonat Direct Bilirubin Not Reportable 11/28/19 03:15 Neonat Indirect Bili Not Reportable 11/28/19 03:15 AST 37 U/L (17-59) 11/28/19 03:15 ALT 32 U/L (<50) 11/28/19 03:15 Alkaline Phosphatase 57 U/L (38-126) 11/28/19 03:15 Total Protein 7.9 g/dL (6.3-8.2) 11/28/19 03:15 Albumin 4.7 g/dL (3.5-5.0) 11/28/19 03:15 Lipase 72.0 U/L (23-300) 11/28/19 03:15 Urine Color YELLOW 11/28/19 05:44 Urine Appearance CLEAR 11/28/19 05:44 Urine pH 7.0 (5.0-9.0) 11/28/19 05:44 Ur Specific [place] 1.026 11/28/19 05:44 Urine Protein 30 mg/dL (NEGATIVE) H 11/28/19 05:44 Urine Glucose (UA) NEGATIVE mg/dL (NEGATIVE) 11/28/19 05:44 Urine Ketones 80 mg/dL (NEGATIVE) H 11/28/19 05:44 Urine Blood NEGATIVE (NEGATIVE) 11/28/19 05:44 Urine Nitrite NEGATIVE (NEGATIVE) 11/28/19 05:44 Urine Bilirubin NEGATIVE (NEGATIVE) 11/28/19 05:44 Urine Urobilinogen NEGATIVE mg/dL (<2.0) 11/28/19 05:44 Ur Leukocyte Esterase NEGATIVE (NEGATIVE) 11/28/19 05:44 Urine WBC (Auto) 3 /HPF 11/28/19 05:44 Urine RBC (Auto) 5 /HPF 11/28/19 05:44 Squamous Epi Cells Auto <1 /HPF 11/28/19 05:44 Urine Mucus (Auto) FEW /LPF 11/28/19 05:44 Urine Ascorbic Acid NEGATIVE (NEGATIVE) 11/28/19 05:44 Impressions: Abdomen/Pelvis CT 11/28/19 00:00 IMPRESSION: 1. High-grade small bowel obstruction with suspected transition point in the right lower quadrant or right upper pelvis. The degree of small bowel distention appears slightly worsened since the prior study. 2. Small amount of free fluid in the abdomen and pelvis. Acute Abdomen Series 11/28/19 02:23 IMPRESSION: Presumed ileus.. No evidence of active intrathoracic disease. KUB X-Ray 11/28/19 08:22 IMPRESSION: Nasogastric tube tip and side port in the stomach. Persistent air-filled dilated left upper quadrant small bowel loops KUB X-Ray 11/29/19 00:00 IMPRESSION: Findings consistent with an improving small bowel obstruction.
[2019-11-29 22:02] VITALS: BP 126/87
== END 2019-11-29 22:30 | disposition home or self-care (01) | DRG 392 ==
LOC: ER 02:03 → EH 08:29 → 4N 12:43
PROVIDERS: ADMIT Surgery; ATTEND Surgery
DX: K59.03 Drug induced constipation (principal); T40.2X5A Adverse effect of other opioids, initial encounter; Y92.018 Other place in single-family (private) house as the place of occurrence of the external cause
CPT/HCPCS: 36415; 74018; 74022; 74177; 80048; 80053; 81001; 83690; 85025; 96361; 96374; 96375; 96376; 99285; J0131; J1650; J1885; J2405; J2765; J3010; J3490; J7030; J7121; S0028; S0119